=== PATIENT | female | born 1985 | race Caucasian/White ===

== ENCOUNTER → 2016-08-12 | Outpatient (CLI) | payer BC ==
--- NOTE | 2016-08-12 15:33 | DIAGNOSTIC IMAGING REPORT ---
RIGHT ANKLE 3 VIEWS CLINICAL HISTORY: Right ankle injury and pain. FINDINGS: 3 views of the right ankle are obtained. No prior studies are available for comparison at the time of dictation. The skeletal structures are well mineralized. No fracture is seen. The ankle mortise is intact. There is no joint effusion. Mild soft tissue swelling is noted. IMPRESSION: Mild soft tissues with no radiographic evidence of right ankle fracture. Electronically signed by: Isidro Prabhakar M.D. 08/12/2016 3:32 PM Dictated Date/Time: 08/12/2016 3:31 PM
== END | disposition home or self-care (01) ==
LOC: C.RAD1850 15:20
PROVIDERS: ATTEND Internal Medicine
DX: M25.571 Pain in right ankle and joints of right foot (principal)

== ENCOUNTER 2022-01-30 16:23 | Inpatient (IN) ==
[2022-01-30] MEDS ORDERED: SODIUM CHLORIDE 0.9% 1000ML 1,000 ML IV ONE (16:50)
--- NOTE | 2022-01-30 16:53 | Emergency Department Note ---
Impression & Plan Cardiomyopathy, Pleural effusion, Shortness of breath, Chest pain ED Provider Note NAME: ALLEY TORRES AGE: 36 SEX: F : 1985 ARRIVES VIA: Walk-In INFORMANT: Patient ED PROVIDER(S): Lawrence Yao DO CHIEF COMPLAINT: Cough HPI: Patient is a 28-year-old female who with a past medical history asthma, hypothyroidism that presents to the ER for cough which has been present for the past month. Got worse this past Thursday. Patient was seen and evaluated at [facility] and placed on doxycycline and discharged. She notes her symptoms has gotten worse. She is significantly short of breath. She denies any headache or change in vision. She admits to chest pain which has been present for the past 3 days and describes as a tightness. No dysuria, urgency, or frequency. No other exacerbating or remitting factors. She denies any runny nose, sore throat , congestion, or fevers with any of these symptoms. The cough has been nonproductive. ROS: See above HPI for pertinent positives & negatives. A total of 10 systems reviewed and were otherwise negative. PAST MEDICAL HISTORY:See Below PAST SURGICAL HISTORY:See Below FAMILY HISTORY:See Below SOCIAL HISTORY:See Below HOME MEDICATIONS:See Below ALLERGIES:See Below VITALS:See Below PHYSICAL EXAMINATION: GENERAL: Sitting up in bed, alert, ill-appearing, tachypneic, ill-appearing EYE EXAM: normal conjunctiva. PERRL and EOM's grossly intact. OROPHARYNX: mucous membranes are dry NECK: supple, no nuchal rigidity, no adenopathy, non-tender LUNGS: Crackles bilaterally. Normal chest wall mechanics HEART: Tachycardic, S1 normal and S2 normal ABDOMEN: abdomen soft, non-tender, normo-active bowel sounds, no masses, no rebound or guarding. UPPER EXTREMITIES: upper extremities are grossly normal. LOWER EXTREMITIES: No pitting edema. NEURO EXAM: Normal sensorium, cranial nerves II-XII grossly intact, normal speech, no gross weakness of arms, no gross weakness of legs. MEDICAL DECISION MAKING: Patient is a 36-year-old female who presents the ER for significant shortness of breath she has been getting worse over the past week. She has had a cough for over a month. IV was established blood work is obtained. She is found to be tachypneic and tachycardic. Labs show no significant leukocytosis. Hemoglobin with anemia 10.5. BMP was unremarkable. LFTs bilirubin was unremarkable. Troponin was slightly elevated at 23. proBNP was elevated at nearly 400. Lipase was normal. Influenza COVID and RSV was negative. Chest x-ray with cephalization. CT angio of the chest shows no PEs but bilateral pleural effusions and pulmonary edema. She was discussed with Dr. Aamir Layton from cardiology. He notes that if the ase certified technician is still in the house it would be reasonable to obtain an echo at this time but if not it can wait until the morning. Did contact the ase certified technician and she is already home. Discussed with the hospitalist for admission as we do believe that this likely a cardiomyopathy. Cardiology does not believe that this is a acute coronary event as symptoms have been there for several days and troponins only mildly elevated. He did review the EKG as well. Patient was given a dose of Lasix after discussion with cardiology. Patient was on BiPAP to help with the respiratory effort and was admitted to the hospital for further work-up. She was never hypoxic. Triage Nursing notes reviewed. Limited review of prior medical records performed Vital Signs: reviewed and remarkable for tachycardic Differential diagnosis: Differential diagnoses includes but is not limited to pneumonia, bronchitis, COPD/Asthma exacerbation, pneumothorax, pulmonary embolism, congestive heart failure, acute coronary syndrome ER treatment provided: See below Diagnostics interpreted by me: ECG: Sinus tachycardia rate of 132 Left axis Left bundle branch block Cardiac Monitoring: An order was placed for continuous cardiac monitoring. The monitor shows a rate of 132 with sinus rhythm. Laboratory studies: As stated above and show below. Imaging studies: Portable AP upright 1 view of the chest shows cephalization and no pneumothorax CT angio of the chest as described above shows pulmonary edema and pleural effusions Consultation(s): Discussed with Dr. Layton from cardiology as described above Discussed with not any hospitalist as described above Procedures: none Critical Care: I have personally spent 75 minutes of critical care time in the direct management of this patient. This includes bedside care, interpretation of diagnostic studies, and testing, discussion with consultants, patient, and family members, and other required patient management activities. This 75 minutes is in excess of all separately billable procedures. Past Med/Surg History Medical History (Updated 01/30/22 @ 19:12 by Heraclio Hodge MD) Asthma has not had an issue in years- since around 2018- no longer uses inhaler Frequent sinus infections Hypothyroidism Hypothyroidism Seasonal allergies Sinus drainage Surgical History (Updated 10/30/21 @ 15:55 by Octavia Kebede) History of endoscopic sinus surgery 10/17/21 History of intestinal surgery shortly after History of tonsillectomy History of tooth extraction [place] teeth removed Family History Grandmother (Maternal) Diabetes Breast cancer Mother Diabetes Grandfather (Maternal) Emphysema of lung Father Hypertension Dyslipidemia Denies family history of Ovarian cancer Colorectal cancer Social History Smoking Status: Never smoker Second Hand Exposure: No; Hx Alcohol Use: No Hx Substance Use: No Preferred Language: Khmer Communication Ability: Effective Visual Impairment: Limited Home Extension Agent Required: No Beliefs That Will Affect Care: None marital status: Single Current Living Situation: Alone current occupational status: employed current occupation: [employer] Feels Safe at Home: Yes Childhood Exposure to Second-Hand Smoke: No caffeine: Yes Dental Care, Regularly: Yes Physical Activity Frequency: 5-6 Times per Week Seatbelt Use: always Sunscreen Use: Yes Assistive Devices: Glasses Allergies Allergies Allergy/AdvReac Type Severity Reaction Status Date / Time Latex, Natural Rubber Allergy Mild Redness of Verified 01/30/22 17:07 Skin Penicillins Allergy Unknown CAN'T Uncoded 01/30/22 17:07 REMEMBER Home Meds Home Medications Medication Instructions Recorded Confirmed cetirizine 10 mg capsule (Zyrtec) 10 mg PO QAM PRN Allergic Symptoms 08/20/21 01/30/22 L norgest/E estradiol-E estrad 1 tab PO QPM 01/30/22 01/30/22 0.15 mg-30 mcg (84)/10 mcg(7) tabs,3mos (Seasonique) albuterol sulfate 90 mcg/actuation 2 puff inhalation Q8H PRN 01/30/22 01/30/22 aerosol inhaler Shortness Of Breath Or Wheezing doxycycline hyclate 100 mg capsule 100 mg PO BID 01/30/22 01/30/22 promethazine-DM 6.25 mg-15 mg/5 mL 5 ml PO Q8H PRN Cough 01/30/22 01/30/22 oral syrup Previous Rx's Medication Instructions Recorded fluticasone propionate 50 2 spray intranasal DAILY #16 grams 10/14/21 mcg/actuation nasal spray,suspension levothyroxine 150 mcg tablet 150 mcg PO DAILY #30 tabs 12/23/21 Results & Data (ED) Vital Signs Vital Signs - 24 hr 01/30/22 16:27 01/30/22 16:47 01/30/22 16:52 Temperature 36.3 C L Temperature Source Temporal Artery Scan Pulse Rate 135 H 127 H Pulse Rate from SpO2 Sensor 128 H Respiratory Rate 20 30 H Respiratory Effort / Characteristics Non-Labored Respiratory Depth Normal Respiratory Pattern Blood Pressure 139/84 Blood Pressure Mean 102 Pulse Oximetry 96 97 Oxygen Delivery Method Room Air Room Air Room Air Fraction of Inspired Oxygen Sepsis Recent Fever Within 48 Hours No Sepsis New/Unexplained Change in Mental Status No Sepsis Action Taken by Nursing No Action Required 01/30/22 17:00 01/30/22 17:48 01/30/22 17:30 Temperature Temperature Source Pulse Rate 125 H 130 H 129 H Pulse Rate from SpO2 Sensor 126 H 128 H Respiratory Rate 30 H 22 34 H Respiratory Effort / Characteristics Non-Labored Spontaneous Respiratory Depth Normal Respiratory Pattern Regular Blood Pressure 133/97 129/99 Blood Pressure Mean 109 109 Pulse Oximetry 95 95 91 Oxygen Delivery Method Room Air Room Air Fraction of Inspired Oxygen 21 Sepsis Recent Fever Within 48 Hours Sepsis New/Unexplained Change in Mental Status Sepsis Action Taken by Nursing 01/30/22 18:00 01/30/22 18:00 01/30/22 18:33 Temperature Temperature Source Pulse Rate 133 H Pulse Rate from SpO2 Sensor 129 H 128 H Respiratory Rate 25 H Respiratory Effort / Characteristics Respiratory Depth Respiratory Pattern Blood Pressure 119/93 Blood Pressure Mean 101 Pulse Oximetry 95 94 Oxygen Delivery Method BiPAP Fraction of Inspired Oxygen Sepsis Recent Fever Within 48 Hours Sepsis New/Unexplained Change in Mental Status Sepsis Action Taken by Nursing 01/30/22 18:39 01/30/22 18:39 01/30/22 19:00 Temperature Temperature Source Pulse Rate 132 H 126 H Pulse Rate from SpO2 Sensor 134 H Respiratory Rate 24 36 H Respiratory Effort / Characteristics Respiratory Depth Respiratory Pattern Blood Pressure 138/105 H 134/100 Blood Pressure Mean 116 111 Pulse Oximetry 93 98 Oxygen Delivery Method Fraction of Inspired Oxygen Sepsis Recent Fever Within 48 Hours Sepsis New/Unexplained Change in Mental Status Sepsis Action Taken by Nursing Laboratory Data Result diagrams: 01/30/22 16:40 01/30/22 16:40 Lab Results 01/30/22 01/30/22 01/30/22 Range/Units 16:40 16:40 17:05 WBC 10.38 (4.8-10.8) K/ul RBC 4.09 (3.93-5.22) M/uL Hgb 10.5 L (12.0-16.0) g/dl POC Hgb 11.2 L (12.0-16.0) g/dl Hct 33.5 L (34.1-44.9) % POC Hct 33 L (37-47) % MCV 81.9 (80.0-100.0) fL MCH 25.7 (25.0-34.0) pg MCHC 31.3 L (32.0-36.0) g/dL RDW Std Deviation 43.2 (36.4-46.3) fL RDW Coeff of Ayla 14.6 H (11.5-14.5) % Plt Count 576 H (130-400) K/uL MPV 10.0 (9.4-12.3) fL Immature Gran % (Auto) 0.4 % Neut % (Auto) 71.9 % Lymph % (Auto) 19.7 % Greene % (Auto) 6.6 % Eos % (Auto) 0.9 % Baso % (Auto) 0.5 % Neut # (Auto) 7.47 H (1.4-6.5) K/uL Lymph # (Auto) 2.04 (1.2-3.4) K/uL Greene # (Auto) 0.69 (0.24-0.82) K/uL Eos # (Auto) 0.09 (0-0.50) K/uL Baso # (Auto) 0.05 (0-0.2) K/uL Immature Gran # (Auto) 0.04 H (0.00-0.02) K/uL POC pH (7.35-7.45) POC pCO2 (35-46) mmHg POC pO2 (80-95) mmHg POC HCO3 (19-24) maki/L POC Base Excess (-9-1.8) maki/L POC ABG O2 Sat (90-95) % POC Sodium 140 (135-144) mmol/L Sodium 138 (136-145) mmol/L POC Potassium 3.8 (3.3-5.0) mmol/L Potassium 3.7 (3.5-5.1) mmol/L POC Chloride 107 (101-112) mmol/L Chloride 107 (98-107) mmol/L Carbon Dioxide 22 (21-32) mmol/L POC Total CO2 21 L (24-31) mmol/L Anion Gap 9 (3-11) POC Anion Gap 16.0 (16-25) mmol/L POC BUN 11 (7-18) mg/dl BUN 13 (6-23) mg/dl Creatinine 0.77 (0.6-1.2) mg/dl POC Creatinine 0.7 (0.6-1.3) mg/dl Est Cr Clr Drug Dosing 100.5 ml/min Est GFR ( Amer) 113.5 ml/min Est GFR (Non-Af Amer) 97.9 ml/min BUN/Creatinine Ratio 16.9 (10-20) Glucose 108 H (70-99(Fasting)) mg/dl POC Glucose (other) 105 H (70-99) mg/dl Calcium 8.1 L (8.5-10.1) mg/dl POC Ioniz Calcium Linh 1.11 L (1.12-1.32) mmol/l Total Bilirubin 0.9 (0.2-1.0) mg/dl AST 30 (13-39) U/L ALT 44 (7-52) U/L Alkaline Phosphatase 94 (34-104) U/L Troponin I High Sens 23.3 H (0-14) pg/ml B-Natriuretic Peptide (0-100) pg/ml Total Protein 6.7 (6.0-8.3) gm/dl Albumin 3.9 (3.4-5.0) gm/dl Globulin 2.8 (2.5-4.0) gm/dl Albumin/Globulin Ratio 1.4 (0.9-2) Lipase 20 (11-82) U/L SARS-CoV-2 (PCR) (Negative) Influenza Type A (PCR) (Neg) Influenza Type B (PCR) (Neg) RSV (RT-PCR) (Neg) 01/30/22 01/30/22 01/30/22 Range/Units 17:19 17:44 18:13 WBC (4.8-10.8) K/ul RBC (3.93-5.22) M/uL Hgb (12.0-16.0) g/dl POC Hgb 10.5 L (12.0-16.0) g/dl Hct (34.1-44.9) % POC Hct 31 L (37-47) % MCV (80.0-100.0) fL MCH (25.0-34.0) pg MCHC (32.0-36.0) g/dL RDW Std Deviation (36.4-46.3) fL RDW Coeff of Ayla (11.5-14.5) % Plt Count (130-400) K/uL MPV (9.4-12.3) fL Immature Gran % (Auto) % Neut % (Auto) % Lymph % (Auto) % Greene % (Auto) % Eos % (Auto) % Baso % (Auto) % Neut # (Auto) (1.4-6.5) K/uL Lymph # (Auto) (1.2-3.4) K/uL Greene # (Auto) (0.24-0.82) K/uL Eos # (Auto) (0-0.50) K/uL Baso # (Auto) (0-0.2) K/uL Immature Gran # (Auto) (0.00-0.02) K/uL POC pH 7.41 (7.35-7.45) POC pCO2 29 L (35-46) mmHg POC pO2 71 L (80-95) mmHg POC HCO3 19 (19-24) maki/L POC Base Excess -6.0 (-9-1.8) maki/L POC ABG O2 Sat 95.0 (90-95) % POC Sodium 138 (135-144) mmol/L Sodium (136-145) mmol/L POC Potassium 3.9 (3.3-5.0) mmol/L Potassium (3.5-5.1) mmol/L POC Chloride (101-112) mmol/L Chloride (98-107) mmol/L Carbon Dioxide (21-32) mmol/L POC Total CO2 19 L (24-31) mmol/L Anion Gap (3-11) POC Anion Gap (16-25) mmol/L POC BUN (7-18) mg/dl BUN (6-23) mg/dl Creatinine (0.6-1.2) mg/dl POC Creatinine (0.6-1.3) mg/dl Est Cr Clr Drug Dosing ml/min Est GFR ( Amer) ml/min Est GFR (Non-Af Amer) ml/min BUN/Creatinine Ratio (10-20) Glucose (70-99(Fasting)) mg/dl POC Glucose (other) (70-99) mg/dl Calcium (8.5-10.1) mg/dl POC Ioniz Calcium Linh (1.12-1.32) mmol/l Total Bilirubin (0.2-1.0) mg/dl AST (13-39) U/L ALT (7-52) U/L Alkaline Phosphatase (34-104) U/L Troponin I High Sens (0-14) pg/ml B-Natriuretic Peptide 377 H (0-100) pg/ml Total Protein (6.0-8.3) gm/dl Albumin (3.4-5.0) gm/dl Globulin (2.5-4.0) gm/dl Albumin/Globulin Ratio (0.9-2) Lipase (11-82) U/L SARS-CoV-2 (PCR) NEGATIVE (Negative) Influenza Type A (PCR) Negative (Neg) Influenza Type B (PCR) Negative (Neg) RSV (RT-PCR) Negative (Neg) Administered Medications Discontinued Medications Furosemide (Furosemide 40 Mg/4 Ml Vial) 40 mg IV NOW STA Stop: 01/30/22 17:44 Last Admin: 01/30/22 18:04 Dose: 40 mg Documented By: MATT Sodium Chloride (Nss 1000ml) 1,000 mls @ 999 mls/hr IV .Q1H1M ONE Stop: 01/30/22 17:50 Last Infusion: 01/30/22 18:09 Dose: 0 mls/hr Documented By: Admin: 01/30/22 17:00 Dose: 999 mls/hr Documented By: MATT Ioversol (Optiray 320 500ml) 117 ml IV ONCE ONE Stop: 01/30/22 17:22 Last Admin: 01/30/22 17:23 Dose: 117 ml Documented By: JIM Methylprednisolone (Methylprednisolone 125 Mg/2 Ml Vial) 125 mg IV NOW STA Stop: 01/30/22 18:25 Last Admin: 01/30/22 18:54 Dose: 125 mg Documented By: MATT Imaging Data Radiologist's Impression: Chest X-Ray 01/30/22 16:31 XR chest 1V portable HISTORY: Atypical Chest pain, nonspecific COMPARISON: None. FINDINGS: No pneumothorax. No pleural effusions. The heart is mildly enlarged. There are low lung volumes. Mild perihilar interstitial thickening may be technical. No focal lung consolidations to suggest a pneumonia. IMPRESSION: Mild prominence of the cardiac silhouette and interstitial thickening. This could be due technical from the AP portable technique. ACT 112: Negative or not required by law. Electronically signed by: Mohsen Giron M.D. 01/30/2022 4:54 PM Chest CTA 01/30/22 16:50 CT ANGIOGRAPHY OF THE CHEST, PULMONARY EMBOLUS PROTOCOL CLINICAL HISTORY: Chest pain. Cough. Shortness of breath. COMPARISON STUDY: Chest radiograph performed earlier today. TECHNIQUE: Following IV administration of 117 mL of Optiray, helical axial images of the chest were obtained utilizing the pulmonary embolus protocol. Maximal intensity projections and sagittal and coronal reformats were viewed on an independent 3D workstation. IV contrast was administered without complication. Automated exposure control was utilized for the study. A dose lowering technique was utilized adhering to the principles of ALARA. CT DOSE: 595.40 mGy.cm FINDINGS: No pulmonary emboli are identified. Mild cardiomegaly is noted with left ventricular dilatation. There is no pericardial effusion. No thoracic aortic dissection is present. Prominent mediastinal lymph nodes may be related to pulmonary edema. There is no axillary or hilar lymphadenopathy. No pneumothorax is present. Moderate right and small left pleural effusions are present. Interlobular septal thickening is present. Groundglass opacities within the lungs are also present. There is no consolidation to suggest pneumonia. Central airways are patent. Lungs are suboptimally assessed due to respiratory motion. IMPRESSION: 1. No pulmonary emboli identified. 2. Moderate pulmonary edema with moderate right and small left pleural effusions. Mild cardiomegaly with left ventricular dilatation. ACT 112: Negative or not required by law. Electronically signed by: Ant Pickett M.D. 01/30/2022 5:38 PM Discharge Plan Visit Data Chief Complaint: Referred by Doctor Stated Complaint: REFERRED BY DOC,PNEUMONIA, STILL HAS COUGH ED Provider: Lawrence Yao Discharge Problem: Cardiomyopathy, Pleural effusion, Shortness of breath, Chest pain Patient Disposition: Admitted As Inpatient Forms Stand Alone Forms: My [facility] Prescriptions Prescriptions: No Action fluticasone propionate 50 mcg/actuation spray,suspension 2 spray intranasal DAILY Qty: 16 3RF Rx Instructions: administer into each nostril levothyroxine 150 mcg tablet 150 mcg PO DAILY Qty: 30 1RF Zyrtec 10 mg capsule 10 mg PO QAM PRN (Reason: Allergic Symptoms) promethazine-DM 6.25-15 mg/5 mL syrup 5 ml PO Q8H PRN (Reason: Cough) doxycycline hyclate 100 mg capsule 100 mg PO BID Rx Instructions: STARTED 01/24/22 FOR 14 DAYS. albuterol sulfate 90 mcg/actuation HFA aerosol inhaler 2 puff INHALATION Q8H PRN (Reason: Shortness Of Breath Or Wheezing) L norgest/e.estradiol-e.estrad [Seasonique] 0.15 mg-30 mcg (84)/10 mcg (7) tablets,dose pack,3 month 1 tab PO QPM Referrals Referrals: Jin Aguilar MD [Primary Care Provider] -
--- NOTE | 2022-01-30 16:55 | XRay Report ---
XR chest 1V portable HISTORY: Atypical Chest pain, nonspecific COMPARISON: None. FINDINGS: No pneumothorax. No pleural effusions. The heart is mildly enlarged. There are low lung vol umes. Mild perihilar interstitial thickening may be technical. No focal lung consolidations to sugges t a pneumonia. IMPRESSION: Mild prominence of the cardiac silhouette and interstitial thickening. This could be due technical fr om the AP portable technique. ACT 112: Negative or not required by law. Electronically signed by: Mohsen Giron M.D. 01/30/2022 4:54 PM
[2022-01-30 16:58] LABS: Basophils # (auto) 0.05 K/uL (0-0.2); Basophils % (auto) 0.5 %; Eosinophils # (auto) 0.09 K/uL (0-0.50); Eosinophils % (auto) 0.9 %; Hematocrit (blood only) 33.5 % (34.1-44.9); Hemoglobin 10.5 g/dl (12.0-16.0); Immature Granulocytes # (auto) 0.04 K/uL (0.00-0.02); Immature Granulocytes % (auto) 0.4 %; Lymphocytes # (auto) 2.04 K/uL (1.2-3.4); Lymphocytes % (auto) 19.7 %; Mean Corpuscular Hemoglobin 25.7 pg (25.0-34.0); Mean Corpuscular Hgb Conc 31.3 g/dL (32.0-36.0); Mean Corpuscular Volume 81.9 fL (80.0-100.0); Monocytes # (auto) 0.69 K/uL (0.24-0.82); Monocytes % (auto) 6.6 %; Neutrophils # (auto) 7.47 K/uL (1.4-6.5); Neutrophils % (auto) 71.9 %; Platelet Count 576 K/uL (130-400); RDW Coefficient of Variation 14.6 % (11.5-14.5); RDW Standard Deviation 43.2 fL (36.4-46.3); Red Blood Count 4.09 M/uL (3.93-5.22); White Blood Count 10.38 K/ul (4.8-10.8)
[2022-01-30 17:20] LABS: iSTAT Creatinine 0.7 mg/dl (0.6-1.3); iSTAT Hemoglobin 11.2 g/dl (12.0-16.0); iSTAT Ionized Calcium 1.11 mmol/l (1.12-1.32); iSTAT Potassium 3.8 mmol/L (3.3-5.0)
[2022-01-30] MEDS ORDERED: OPTIRAY 320 500ml IV ONE (17:21)
[2022-01-30 17:23] LABS: Troponin I High Sensitivity 23.3 pg/ml (0-14)
[2022-01-30 17:30] LABS: Albumin Globulin Ratio 1.4 (0.9-2); Albumin Level 3.9 gm/dl (3.4-5.0); BUN Creatinine Ratio 16.9 (10-20); Bilirubin,Total 0.9 mg/dl (0.2-1.0); Calcium 8.1 mg/dl (8.5-10.1); Creatinine Clr Calc Pharmacy 100.5 ml/min; Est GFR (African American) 113.5 ml/min; Est GFR (Non-African American) 97.9 ml/min; Globulin 2.8 gm/dl (2.5-4.0); Potassium 3.7 mmol/L (3.5-5.1); Total Protein 6.7 gm/dl (6.0-8.3)
--- NOTE | 2022-01-30 17:40 | CT Scan Report ---
CT ANGIOGRAPHY OF THE CHEST, PULMONARY EMBOLUS PROTOCOL CLINICAL HISTORY: Chest pain. Cough. Shortness of breath. COMPARISON STUDY: Chest radiograph performed earlier today. TECHNIQUE: Following IV administration of 117 mL of Optiray, helical axial images of the chest were o btained utilizing the pulmonary embolus protocol. Maximal intensity projections and sagittal and cor onal reformats were viewed on an independent 3D workstation. IV contrast was administered without co mplication. Automated exposure control was utilized for the study. A dose lowering technique was ut ilized adhering to the principles of ALARA. CT DOSE: 595.40 mGy.cm FINDINGS: No pulmonary emboli are identified. Mild cardiomegaly is noted with left ventricular dilat ation. There is no pericardial effusion. No thoracic aortic dissection is present. Prominent mediasti nal lymph nodes may be related to pulmonary edema. There is no axillary or hilar lymphadenopathy. No pneumothorax is present. Moderate right and small left pleural effusions are present. Interlobular se ptal thickening is present. Groundglass opacities within the lungs are also present. There is no cons olidation to suggest pneumonia. Central airways are patent. Lungs are suboptimally assessed due to re spiratory motion. IMPRESSION: 1. No pulmonary emboli identified. 2. Moderate pulmonary edema with moderate right and small left pleural effusions. Mild cardiomegaly w ith left ventricular dilatation. ACT 112: Negative or not required by law. Electronically signed by: Ant Pickett M.D. 01/30/2022 5:38 PM
[2022-01-30] MEDS ORDERED: FUROSEMIDE 40 MG/4 ML VIAL IV STA (17:43)
[2022-01-30] MEDS ORDERED: methylPREDNISolone 125 MG/2 ML VIAL IV STA (18:24)
[2022-01-30 18:28] LABS: iSTAT Arterial Blood Gas HCO3 19 meg/L (19-24); iSTAT Arterial Blood Gas pCO2 29 mmHg (35-46); iSTAT Arterial Blood Gas pH 7.41 (7.35-7.45); iSTAT Arterial Blood Gas pO2 71 mmHg (80-95); iSTAT Carbon Dioxide 19 mmol/L (24-31); iSTAT Hematocrit 31 % (37-47); iSTAT Hemoglobin 10.5 g/dl (12.0-16.0); iSTAT Potassium 3.9 mmol/L (3.3-5.0); iSTAT Sodium 138 mmol/L (135-144)
[2022-01-30 18:34] LABS: Influenza A virus by PCR Negative (Neg); Influenza B virus by PCR Negative (Neg); RSV by PCR Negative (Neg); SARS CoV2 RNA(COVID-19) Ceph NEGATIVE (Negative)
[2022-01-30] MEDS ORDERED: CETIRIZINE HCL 10 MG TABLET PO PRN (19:00)
[2022-01-30] MEDS ORDERED: ALBUT/IPRATROP 3MG/0.5MG NEB 3 ML VIAL NEB ONE (19:15)
--- NOTE | 2022-01-30 19:41 | History & Physical Report ---
Date of Service January 30, 2022 Assessment & Plan (1) Acute asthma exacerbation: Plan: Typical presentation with acute respiratory alkalosisIV methylprednisolone 125 mg IV given in the ED. 40 mg IV every 8 hours started. No eosinophilia. (Has had recent sinus surgery and has seasonal allergies) PE ruled out by CTA Pleural effusions may be related to a viral pneumonia. TTE ordered by ER physician will probably be done in the morning. Nebulizers DuoNebs. Rule out SARS-CoV-2 though -6 days ago Needs optimization of asthma medications. Have started Advair. Pulmonology consult routine echo ordered in the ED after cardiomegaly seen on CT of the chest. That has ruled out PE. Continue home promethazine dextromethorphan started in [facility] 6 days ago. No indication for antibiotics I have no concern for any cardiac etiology. proBNP in the 300s Troponin mildly elevated- Repeat 4 hours after first sample to ensure stable. Mother of CHF in her 60s and this may be a risk factor potentially if it is ischemic cardiomyopathy. EKG reviewed :Sinus tachycardia normal axis, ST elevation without upcobing in leads V1 to 3 with poor R wave progressionwill need repeat EKG once tachycardia improves. (2) Hypothyroidism: Plan: Check TSH and keep home dose levothyroxine (3) Menorrhagia with regular cycle: Plan: Normocytic anemia mild hemoglobin 10. This is a 3 g drop in 6 months Repeat in a.m. (4) Obesity (BMI 30.0-34.9): Plan: Needs to see a PCP regularly for health maintenance (5) Seasonal allergies: Plan: Continue home antihistamine Zyrtec Plan Treat for asthma exacerbation with pulmonology consult DVT prophylaxis with Lovenox Admitted to PCU. Discussed plan with patient and her sister as well as [id number] who were in the room, their questions answered History of Present Illness Chief Complaint: Cough and shortness of breath for 3 weeks, worsening last 4 to 5 days Primary Care Provider: Jin Aguilar MD 36 F employed in the [employer] with past medical history of asthma (not on any medications and not seeing any primary care physician), recent right ethmoid sinus surgery for silent sinus syndrome 10/17/2021, presents with a 3-week history of cough with clear sputum and a 1 week history of increasing shortness of breath. Cough with clear sputum for which she saw [facility] 6 days ago was prescribed doxycycline for 14 days. She was told she has pneumonia after chest x-ray. She noticed no improvement and for the last few days has been sitting up in bed to breathe. Occasionally hears herself wheezing. Presented to the ED with her [id number] today with a heart rate in the 130s and respiratory rate initially at 40/min. Initial ER diagnosis of CHF was made from some cardiomegaly seen on the CTA which had ruled out a pulmonary embolus and pneumonia. Also has moderate pleural effusions. No fever. Fully COVID vaccinated and booster dose October. Negative Sars- COV2 PCR 6 days ago in [facility]. Got 40 mg IV Lasix by the time I evaluated in the ER where she was on BiPAP 01/23 9on room air) saturating 95%. On walking to the bathroom and back off BiPAP was in no significant respiratory distress and sats remained 96 to 98% on room air with significant tachycardia sinus. ABGs RA revealed respiratory alkalosis 7.408/29.3/71/95% ROS : No palpitations/fever/chills chest pain with persistent cough, orthopnea as mentioned above for the last few days sitting up to breathe at night, no significant weight gain. No leg swelling. No known heart condition or diagnosis Menorrhagia for as long as she is had periods and uses oral contraceptive pills to control it. No skin changesurinary symptoms/nausea/vomiting No syncope or dizziness. No confusion noted (corroborated by [id number] in the room), does not report any skin rash 2 loose bowel movements per day for the last 3 to 4 days, Denies depressed mood No dyspnea on exertion at baseline and walks to the bus from her workplace in [facility] because she does not like driving. Allergies Allergy/AdvReac Type Severity Reaction Status Date / Time Latex, Natural Rubber Allergy Mild Redness of Verified 01/30/22 17:07 Skin Penicillins Allergy Unknown CAN'T Uncoded 01/30/22 17:07 REMEMBER Home Medications Medication Instructions Recorded Confirmed Type cetirizine 10 mg capsule (Zyrtec) 10 mg PO QAM PRN Allergic Symptoms 08/20/21 01/30/22 History fluticasone propionate 50 2 spray intranasal DAILY #16 grams 10/14/21 01/30/22 Rx mcg/actuation nasal spray,suspension levothyroxine 150 mcg tablet 150 mcg PO DAILY #30 tabs 12/23/21 01/30/22 Rx L norgest/E estradiol-E estrad 1 tab PO QPM 01/30/22 01/30/22 History 0.15 mg-30 mcg (84)/10 mcg(7) tabs,3mos (Seasonique) albuterol sulfate 90 mcg/actuation 2 puff inhalation Q8H PRN 01/30/22 01/30/22 History aerosol inhaler Shortness Of Breath Or Wheezing doxycycline hyclate 100 mg capsule 100 mg PO BID 01/30/22 01/30/22 History promethazine-DM 6.25 mg-15 mg/5 mL 5 ml PO Q8H PRN Cough 01/30/22 01/30/22 History oral syrup Past Med/Surg History Medical History (Updated 01/30/22 @ 19:12 by Heraclio Hodge MD) Asthma has not had an issue in years- since around 2017- no longer uses inhaler Frequent sinus infections Hypothyroidism Hypothyroidism Seasonal allergies Sinus drainage Surgical History (Updated 10/30/21 @ 15:55 by Octavia Kebede) History of endoscopic sinus surgery 10/17/21 History of intestinal surgery shortly after History of tonsillectomy History of tooth extraction Mora teeth removed Family History Grandmother (Maternal) Diabetes Breast cancer Mother Diabetes Grandfather (Maternal) Emphysema of lung Father Hypertension Dyslipidemia Denies family history of Ovarian cancer Colorectal cancer Social History Smoking Status: Never smoker Second Hand Exposure: No; Hx Alcohol Use: No Hx Substance Use: No Preferred Language: Cypriot Communication Ability: Effective Visual Impairment: Limited Registered Diet Technician Required: No Beliefs That Will Affect Care: None marital status: Single Current Living Situation: Alone current occupational status: employed current occupation: [employer] Feels Safe at Home: Yes Childhood Exposure to Second-Hand Smoke: No caffeine: Yes Dental Care, Regularly: Yes Physical Activity Frequency: 5-6 Times per Week Seatbelt Use: always Sunscreen Use: Yes Assistive Devices: Glasses Immunizations: COVID-19 fully vaccinated with booster October 2021, flu shot this year Physical Exam Physical Exam: Pleasant obese lady, able to give a lucid history, no acute distress even off BiPAP Heart rate 132, respiratory rate 30/min, temperature 36.3, sats 98% on room air with and without BiPAP 128 Chest very diminished entry breath sounds bilaterally, no wheezes CVS S1-S2 tachycardia Abdomen obese nontender Extremities trace edema [employer] grossly intact, walked to the bathroom unassisted Affectslightly tearful describing her mother's at age 62 from CHF 7 years ago, rest of the time was cheerful, good insight and judgment Results & Data Results & Data ([facility]) Vital Signs (Past 12 Hours) Vital Signs Temp Pulse Resp BP Pulse Ox O2 Del Method FiO2 01/30/22 19:00 126 H 36 H 134/100 98 01/30/22 18:39 138/105 H 01/30/22 18:39 132 H 24 93 01/30/22 18:33 94 01/30/22 18:00 133 H 25 H 95 BiPAP 01/30/22 18:00 119/93 01/30/22 17:30 129 H 34 H 129/99 91 Room Air 01/30/22 17:48 130 H 22 95 21 01/30/22 17:00 125 H 30 H 133/97 95 Room Air 01/30/22 16:52 127 H 30 H 97 Room Air 01/30/22 16:47 Room Air 01/30/22 16:27 36.3 C L 135 H 20 139/84 96 Room Air Laboratory Results 01/30/22 01/30/22 01/30/22 18:13 17:44 17:19 WBC RBC Hgb POC Hgb 10.5 L Hct POC Hct 31 L MCV MCH MCHC RDW Std Deviation RDW Coeff of Ayla Plt Count MPV Immature Gran % (Auto) Neut % (Auto) Lymph % (Auto) Placer % (Auto) Eos % (Auto) Baso % (Auto) Neut # (Auto) Lymph # (Auto) Placer # (Auto) Eos # (Auto) Baso # (Auto) Immature Gran # (Auto) POC pH 7.41 POC pCO2 29 L POC pO2 71 L POC HCO3 19 POC Base Excess -6.0 POC ABG O2 Sat 95.0 POC Sodium 138 Sodium POC Potassium 3.9 Potassium POC Chloride Chloride Carbon Dioxide POC Total CO2 19 L Anion Gap POC Anion Gap POC BUN BUN Creatinine POC Creatinine Est Cr Clr Drug Dosing Est GFR ( Amer) Est GFR (Non-Af Amer) BUN/Creatinine Ratio Glucose POC Glucose (other) Calcium POC Ioniz Calcium Linh Total Bilirubin AST ALT Alkaline Phosphatase Troponin I High Sens B-Natriuretic Peptide 377 H Total Protein Albumin Globulin Albumin/Globulin Ratio Lipase SARS-CoV-2 (PCR) NEGATIVE Influenza Type A (PCR) Negative Influenza Type B (PCR) Negative RSV (RT-PCR) Negative 01/30/22 01/30/22 01/30/22 17:05 16:40 16:40 WBC 10.38 RBC 4.09 Hgb 10.5 L POC Hgb 11.2 L Hct 33.5 L POC Hct 33 L MCV 81.9 MCH 25.7 MCHC 31.3 L RDW Std Deviation 43.2 RDW Coeff of Ayla 14.6 H Plt Count 576 H MPV 10.0 Immature Gran % (Auto) 0.4 Neut % (Auto) 71.9 Lymph % (Auto) 19.7 Placer % (Auto) 6.6 Eos % (Auto) 0.9 Baso % (Auto) 0.5 Neut # (Auto) 7.47 H Lymph # (Auto) 2.04 Placer # (Auto) 0.69 Eos # (Auto) 0.09 Baso # (Auto) 0.05 Immature Gran # (Auto) 0.04 H POC pH POC pCO2 POC pO2 POC HCO3 POC Base Excess POC ABG O2 Sat POC Sodium 140 Sodium 138 POC Potassium 3.8 Potassium 3.7 POC Chloride 107 Chloride 107 Carbon Dioxide 22 POC Total CO2 21 L Anion Gap 9 POC Anion Gap 16.0 POC BUN 11 BUN 13 Creatinine 0.77 POC Creatinine 0.7 Est Cr Clr Drug Dosing 100.5 Est GFR ( Amer) 113.5 Est GFR (Non-Af Amer) 97.9 BUN/Creatinine Ratio 16.9 Glucose 108 H POC Glucose (other) 105 H Calcium 8.1 L POC Ioniz Calcium Linh 1.11 L Total Bilirubin 0.9 AST 30 ALT 44 Alkaline Phosphatase 94 Troponin I High Sens 23.3 H B-Natriuretic Peptide Total Protein 6.7 Albumin 3.9 Globulin 2.8 Albumin/Globulin Ratio 1.4 Lipase 20 SARS-CoV-2 (PCR) Influenza Type A (PCR) Influenza Type B (PCR) RSV (RT-PCR) Diagnostic Findings Home Medications Medication Instructions Recorded Confirmed Last Taken cetirizine 10 mg capsule (Zyrtec) 10 mg PO QAM PRN Allergic Symptoms 08/20/21 01/30/22 10/16/21 fluticasone propionate 50 2 spray intranasal DAILY #16 grams 10/14/21 01/30/22 01/30/22 mcg/actuation nasal spray,suspension levothyroxine 150 mcg tablet 150 mcg PO DAILY #30 tabs 12/23/21 01/30/22 01/30/22 L norgest/E estradiol-E estrad 1 tab PO QPM 01/30/22 01/30/22 01/29/22 0.15 mg-30 mcg (84)/10 mcg(7) tabs,3mos (Seasonique) albuterol sulfate 90 mcg/actuation 2 puff inhalation Q8H PRN 01/30/22 01/30/22 Unknown aerosol inhaler Shortness Of Breath Or Wheezing doxycycline hyclate 100 mg capsule 100 mg PO BID 01/30/22 01/30/22 01/30/22 08:00 promethazine-DM 6.25 mg-15 mg/5 mL 5 ml PO Q8H PRN Cough 01/30/22 01/30/22 Unknown oral syrup Medications Administered Home Medications Medication Instructions Recorded Confirmed Last Taken cetirizine 10 mg capsule (Zyrtec) 10 mg PO QAM PRN Allergic Symptoms 08/20/21 01/30/22 10/16/21 fluticasone propionate 50 2 spray intranasal DAILY #16 grams 10/14/21 01/30/22 01/30/22 mcg/actuation nasal spray,suspension levothyroxine 150 mcg tablet 150 mcg PO DAILY #30 tabs 12/23/21 01/30/22 01/30/22 L norgest/E estradiol-E estrad 1 tab PO QPM 01/30/22 01/30/22 01/29/22 0.15 mg-30 mcg (84)/10 mcg(7) tabs,3mos (Seasonique) albuterol sulfate 90 mcg/actuation 2 puff inhalation Q8H PRN 01/30/22 01/30/22 Unknown aerosol inhaler Shortness Of Breath Or Wheezing doxycycline hyclate 100 mg capsule 100 mg PO BID 01/30/22 01/30/22 01/30/22 08:00 promethazine-DM 6.25 mg-15 mg/5 mL 5 ml PO Q8H PRN Cough 01/30/22 01/30/22 Unknown oral syrup Code Status & VTE Plan Code Status Full code and discussed with patient in ED room VTE Prophylaxis Plan VTE Prophylaxis will be ordered: Yes PG Care Time/CCT Total # of Minutes Spent Total Time Spent with Patient: Total time spent is greater than 50% in coordination of care (as documented) at patient's floor/unit and/or counseling patient: Coding Level of Care Code 32190 Initial Inpt Care Lvl 3 Diagnoses Acute asthma exacerbation J45.901 Hypothyroidism E03.9 Menorrhagia with regular cycle N92.0 Obesity (BMI 30.0-34.9) E66.9 Seasonal allergies J30.2 Time Spent (min) 50
[2022-01-30] MEDS ORDERED: ENOXAPARIN INJ 40 MG/0.4 ML SYR SQ ONE (21:15)
[2022-01-30] MEDS ORDERED: FAMOTIDINE 20 MG TAB PO ONE (21:20)
[2022-01-30] MEDS: FAMOTIDINE 20 MG TAB PO SCH (22:05)
[2022-01-30] MEDS ORDERED: methylPREDNISolone 40 MG in SYRINGE 0 ML IV SCH (23:00)
[2022-01-30] MEDS ORDERED: ALBUT/IPRATROP 3MG/0.5MG NEB 3 ML VIAL NEB PRN (23:00)
[2022-01-31] MEDS ORDERED: methylPREDNISolone 40 MG in SYRINGE 0 ML IV SCH (04:00)
[2022-01-31] MEDS ORDERED: LEVOTHYROXINE SODIUM 150 MCG TABLET PO SCH (06:30)
[2022-01-31] MEDS: FLUTICASONE/VILANTEROL 100/25MCG 14 PUFFS/INHALER INH SCH (08:13)
[2022-01-31] MEDS: FAMOTIDINE 20 MG TAB PO SCH ×2 (08:14→20:53)
[2022-01-31] MEDS: FLUTICASONE PROPIONATE NA SPR 16 GM BTL SCH (08:14)
[2022-01-31] MEDS: guaiFENesin/DEXTROM SYRUP 100MG/10MG 5ML UDC PO PRN (08:14)
--- NOTE | 2022-01-31 08:40 | Pulmonary Consultation ---
Date of Consultation January 31, 2022 Assessment & Plan (1) Pleural effusion: (2) Pulmonary edema: (3) Asthma: (4) Hypoxemia: Plan Impression: 36-year-old female with remote history of asthma not on any medications and without recent PFTs admitted with hypoxemic respiratory failure, pulmonary edema, and bilateral pleural effusions. She is improved at this morning with diuretics BiPAP steroids and bronchodilators. Recommendations: 1. Acute hypoxemic respiratory failure: Would be distinctly unusual for asthma to cause diffuse pulmonary infiltrates consistent with pulmonary edema as well as bilateral pleural effusions so I think there may be a secondary etiology going on. Wean oxygen at this point time. Her blood gas appears to show a decrease in the PCO2 likely compensating for metabolic issue as the patient's pH is normal. She did not have a significant anion gap. Lactate was not checked. At this point time she is better so I do not think we need to proceed with additional evaluation. Would wean oxygen as tolerated. 2. Asthma: The patient does not appear bronchospastic currently. Wheezing could be a result of bronchial wall edema. Nevertheless I cannot rule out that she may have had an asthmatic component. We will continue Breo. Decrease prednisone to 20 mg a day for 3 days then discontinue. 3. Pulmonary edema with bilateral pleural effusions: Echocardiogram pending. Continue diuresis. No indication for thoracentesis. 4. Once the patient stabilized and off oxygen, she can likely be dismissed from the hospital. She should have pulmonary follow-up with repeat PFTs. Allergy evaluation may be appropriate as well. Above recommendations and plan were discussed with the patient. Questions were answered to best my ability. She expressed understanding and is in agreement with plan. Will reassess tomorrow. Feel free to contact us with questions or concerns History of Present Illness Attending Physician: Heraclio Hodge MD History of Present Illness Asked by hospitalist to evaluate this patient admitted with hypoxemic respiratory failure. History is obtained from discussion with the patient and reviewed electronic medical record. The patient is a 36-year-old female who relates a history of childhood asthma. She was admitted as a child and put in an oxygen tent. She had allergy testing performed as an adolescent and was on allergy shots for a period of time but then appeared to outgrow her asthma. She has an inhaler that she uses on an intermittent basis but this is usually only during episodes of upper respiratory illness. 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 The patient states that over the last month she developed a cough. She initi ally attributed this to sinus issues that she had significant postnasal drip. Her symptoms persisted and eventually she was seen at an urgent care clinic. She was prescribed doxycycline which she took but it had no effect on her symptoms. She states she developed paroxysmal nocturnal dyspnea and was unable to lie down. The coughing and shortness of breath became too bad. She is unclear whether this got better with assuming an upright position but due to the persistent of her symptoms she was seen at the urgent care. They performed a repeat chest x-ray which we do not have available to review which showed no acute change and the patient was referred to the emergency room. She was found to be hypoxemic tachycardic and tachypneic in the emergency room. She had a CTA which showed no PE but did show pulmonary edema with bilateral pleural effusions. She was given Lasix and placed on BiPAP. This improved her symptoms and in short order she was able to be weaned off of the BiPAP. She was admitted by the hospitalist with a diagnosis of acute asthma exacerbation after having received Solu-Medrol. Echo was ordered. Troponin and BNP were mildly increased. The patient denies palpitations or chest pressure. She has not noted any significant lower extremity edema. She does have a family history of congestive heart failure. Allergies Allergy/AdvReac Type Severity Reaction Status Date / Time Latex, Natural Rubber Allergy Mild Redness of Verified 01/30/22 17:07 Skin Penicillins Allergy Unknown can't Verified 01/30/22 21:04 remember Home Medications Medication Instructions Recorded Confirmed Type cetirizine 10 mg capsule (Zyrtec) 10 mg PO QAM PRN Allergic Symptoms 08/20/21 01/30/22 History fluticasone propionate 50 2 spray intranasal DAILY #16 grams 10/14/21 01/30/22 Rx mcg/actuation nasal spray,suspension levothyroxine 150 mcg tablet 150 mcg PO DAILY #30 tabs 12/23/21 01/30/22 Rx L norgest/E estradiol-E estrad 1 tab PO QPM 01/30/22 01/30/22 History 0.15 mg-30 mcg (84)/10 mcg(7) tabs,3mos (Seasonique) albuterol sulfate 90 mcg/actuation 2 puff inhalation Q8H PRN 01/30/22 01/30/22 History aerosol inhaler Shortness Of Breath Or Wheezing doxycycline hyclate 100 mg capsule 100 mg PO BID 01/30/22 01/30/22 History promethazine-DM 6.25 mg-15 mg/5 mL 5 ml PO Q8H PRN Cough 01/30/22 01/30/22 History oral syrup Patient History Medical History (Updated 01/31/22 @ 08:34 by Mart Reyna MD) Asthma has not had an issue in years- since around 2018- no longer uses inhaler Frequent sinus infections Hypothyroidism Hypothyroidism Seasonal allergies Sinus drainage Surgical History (Updated 10/30/21 @ 15:55 by Octavia Kebede) History of endoscopic sinus surgery 10/17/21 History of intestinal surgery shortly after History of tonsillectomy History of tooth extraction [place] teeth removed Family History Grandmother (Maternal) Diabetes Breast cancer Mother Diabetes Grandfather (Maternal) Emphysema of lung Father Hypertension Dyslipidemia Denies family history of Ovarian cancer Colorectal cancer Social History Smoking Status: Never smoker Second Hand Exposure: No; Hx Alcohol Use: Yes Hx Substance Use: No Preferred Language: Estonian Communication Ability: Effective Visual Impairment: Limited Wrapper Sizer Required: No Beliefs That Will Affect Care: None marital status: Single Current Living Situation: Alone current occupational status: employed current occupation: [employer] Other Information That Helps Us Care for You: No Feels Safe at Home: Yes Safety Concerns: Feels Safe At This Time Childhood Exposure to Second-Hand Smoke: No caffeine: Yes Dental Care, Regularly: Yes Physical Activity Frequency: 5-6 Times per Week Seatbelt Use: always Sunscreen Use: Yes Assistive Devices: Glasses Review of Systems Review of Systems: All systems reviewed & are unremarkable except as noted in Subjective Physical Exam Constitutional: WD/WN, vitals as above Neck: trachea midline, no thyromegaly Respiratory: normal respiratory effort and + cough; no respiratory distress, no labored breathing and not tachypneic Auscultation: + crackles; no wheezes Cardiovascular: RRR, no murmur, no edema Gastrointestinal (Abdomen): normal bowel sounds, soft, nontender, no hepatosplenomegaly Musculoskeletal: Extremities: extremities normal to inspection Skin: no rashes, warm and dry Neurologic: Nonfocal exam Lymphatic: no cervical lymphadenopathy Results & Data Results & Data ([facility]) Vital Signs (Past 12 Hours) Vital Signs Temp Pulse Pulse Resp BP Pulse Ox O2 Del Method 01/31/22 07:46 36.3 C L 114 H 20 121/80 94 Room Air, Nasal Cannula 01/31/22 07:00 98 H 01/31/22 06:19 70 25 H 96 01/31/22 04:23 36.6 C 108 H 18 139/81 94 Room Air 01/31/22 02:45 126 H 20 21 L BiPAP 01/31/22 00:26 126 H 01/30/22 21:00 122 H 01/30/22 22:09 Nasal Cannula 01/30/22 22:09 36.5 C 122 H 18 123/77 96 Nasal Cannula O2 Flow Rate FiO2 01/31/22 07:46 2 01/31/22 07:00 01/31/22 06:19 21 01/31/22 04:23 01/31/22 02:45 01/31/22 00:26 01/30/22 21:00 01/30/22 22:09 2 01/30/22 22:09 2 Critical Care Results & Data Vital Signs (Past 12 Hours) Vital Signs Temp Pulse Pulse Resp BP Pulse Ox O2 Del Method 01/31/22 07:46 36.3 C L 114 H 20 121/80 94 Room Air, Nasal Cannula 01/31/22 07:00 98 H 01/31/22 06:19 70 25 H 96 01/31/22 04:23 36.6 C 108 H 18 139/81 94 Room Air 01/31/22 02:45 126 H 20 21 L BiPAP 01/31/22 00:26 126 H 01/30/22 21:00 122 H 01/30/22 22:09 Nasal Cannula 01/30/22 22:09 36.5 C 122 H 18 123/77 96 Nasal Cannula O2 Flow Rate FiO2 01/31/22 07:46 2 01/31/22 07:00 01/31/22 06:19 21 01/31/22 04:23 01/31/22 02:45 01/31/22 00:26 01/30/22 21:00 01/30/22 22:09 2 01/30/22 22:09 2 Lab & Micro Results (Past 24 Hours) RBC 4.09 M/uL (3.93-5.22) 01/30/22 WBC 10.38 K/ul (4.8-10.8) 01/30/22 Hgb 10.5 g/dl (12.0-16.0) L 01/30/22 Hct 33.5 % (34.1-44.9) L 01/30/22 MCV 81.9 fL (80.0-100.0) 01/30/22 MCH 25.7 pg (25.0-34.0) 01/30/22 MCHC 31.3 g/dL (32.0-36.0) L 01/30/22 RDW Standard Deviation 43.2 fL (36.4-46.3) 01/30/22 RDW Coefficient of Variation 14.6 % (11.5-14.5) H 01/30/22 Plt Count 576 K/uL (130-400) H 01/30/22 MPV 10.0 fL (9.4-12.3) 01/30/22 Neutrophils (%) (Auto) 71.9 % 01/30/22 Lymphocytes (%) (Auto) 19.7 % 01/30/22 Monocytes # (Auto) 0.69 K/uL (0.24-0.82) 01/30/22 Eosinophils # (Auto) 0.09 K/uL (0-0.50) 01/30/22 Immature Granulocyte % (Auto) 0.4 % 01/30/22 Neutrophils # (Auto) 7.47 K/uL (1.4-6.5) H 01/30/22 Lymphocytes # (Auto) 2.04 K/uL (1.2-3.4) 01/30/22 Monocytes # (Auto) 0.69 K/uL (0.24-0.82) 01/30/22 Eosinophils # (Auto) 0.09 K/uL (0-0.50) 01/30/22 Basophils # (Auto) 0.05 K/uL (0-0.2) 01/30/22 Immature Granulocyte # (Auto) 0.04 K/uL (0.00-0.02) H 01/30 Na 138 mmol/L (136-145) 01/30/22 K 3.7 mmol/L (3.5-5.1) 01/30/22 Cl 107 mmol/L (98-107) 01/30/22 CO2 22 mmol/L (21-32) 01/30/22 Anion Gap 9 (3-11) 01/30/22 BUN 13 mg/dl (6-23) 01/30/22 Creatinine 0.77 mg/dl (0.6-1.2) 01/30/22 Estimated GFR ( Amer) 113.5 ml/min 01/30/22 Estimated GFR (Non-Af Amer) 97.9 ml/min 01/30/22 BUN/Creatinine Ratio 16.9 (10-20) 01/30/22 Glu 108 mg/dl (70-99(Fasting)) H 01/30/22 Ca 8.1 mg/dl (8.5-10.1) L 01/30/22 Total Bilirubin 0.9 mg/dl (0.2-1.0) 01/30/22 AST 30 U/L (13-39) 01/30/22 ALT 44 U/L (7-52) 01/30/22 Alkaline Phosphatase 94 U/L (34-104) 01/30/22 TP 6.7 gm/dl (6.0-8.3) 01/30/22 Albumin 3.9 gm/dl (3.4-5.0) 01/30/22 Globulin 2.8 gm/dl (2.5-4.0) 01/30/22 Albumin/Globulin Ratio 1.4 (0.9-2) 01/30/22 Mg Pending 01/31/22 07:12 Calcium Level 8.1 mg/dl (8.5-10.1) L 01/30/22 16:40 Diagnostic Findings (Past 24 Hours) Chest X-Ray 01/30/22 16:31 XR chest 1V portable HISTORY: Atypical Chest pain, nonspecific COMPARISON: None. FINDINGS: No pneumothorax. No pleural effusions. The heart is mildly enlarged. There are low lung volumes. Mild perihilar interstitial thickening may be technical. No focal lung consolidations to suggest a pneumonia. IMPRESSION: Mild prominence of the cardiac silhouette and interstitial thickening. This could be due technical from the AP portable technique. ACT 112: Negative or not required by law. Electronically signed by: Mohsen Giron M.D. 01/30/2022 4:54 PM Chest CTA 01/30/22 16:50 CT ANGIOGRAPHY OF THE CHEST, PULMONARY EMBOLUS PROTOCOL CLINICAL HISTORY: Chest pain. Cough. Shortness of breath. COMPARISON STUDY: Chest radiograph performed earlier today. TECHNIQUE: Following IV administration of 117 mL of Optiray, helical axial images of the chest were obtained utilizing the pulmonary embolus protocol. Maximal intensity projections and sagittal and coronal reformats were viewed on an independent 3D workstation. IV contrast was administered without complication. Automated exposure control was utilized for the study. A dose lowering technique was utilized adhering to the principles of ALARA. CT DOSE: 595.40 mGy.cm FINDINGS: No pulmonary emboli are identified. Mild cardiomegaly is noted with left ventricular dilatation. There is no pericardial effusion. No thoracic aortic dissection is present. Prominent mediastinal lymph nodes may be related to pulmonary edema. There is no axillary or hilar lymphadenopathy. No pneumothorax is present. Moderate right and small left pleural effusions are present. Interlobular septal thickening is present. Groundglass opacities within the lungs are also present. There is no consolidation to suggest pneumonia. Central airways are patent. Lungs are suboptimally assessed due to respiratory motion. IMPRESSION: 1. No pulmonary emboli identified. 2. Moderate pulmonary edema with moderate right and small left pleural effusions. Mild cardiomegaly with left ventricular dilatation. ACT 112: Negative or not required by law. Electronically signed by: Ant Pickett M.D. 01/30/2022 5:38 PM I & O Totals 24 Hours 01/30/22 01/31/22 02/01/22 06:59 06:59 06:59 Intake Total 1000 / 1000 Balance 1000 / 1000 Cumulative 01/30/22 16:23 thru 01/31/22 06:02 Intake Total 1000 Balance 1000 RT Ventilator Mngmt (Last Documented) Ventilator Ordered Settings Respiratory Rate 20 01/31/22 07:46 Fraction of Inspired Oxygen 21 01/31/22 06:19 Ventilator - PT Measurements Respiratory Rate 20 PG Care Time/CCT Total # of Minutes Spent Total Time Spent with Patient: Total time spent is greater than 50% in coordination of care (as documented) at patient's floor/unit and/or counseling patient: Coding Level of Care Code 76825 Inpt Consult Level 4 Diagnoses Pleural effusion J90 Pulmonary edema J81.1 Asthma J45.909 Hypoxemia R09.02
--- NOTE | 2022-01-31 08:46 | XCELERA ---
[id number]
[2022-01-31 08:49] LABS: Creatinine Clr Calc Pharmacy 124.4 ml/min; Est GFR (African American) 132.6 ml/min; Est GFR (Non-African American) 114.4 ml/min; Magnesium 1.9 mg/dl (1.7-2.4); Potassium 3.7 mmol/L (3.5-5.1)
[2022-01-31] MEDS ORDERED: FUROSEMIDE INJ 20 MG/2 ML VIAL IV SCH (09:00)
--- NOTE | 2022-01-31 09:31 | Electrocardiogram Report ---
Test Reason : Blood Pressure : / mmHG Vent. Rate : 132 BPM Atrial Rate : 132 BPM P-R Int : 130 ms QRS Dur : 112 ms QT Int : 326 ms P-R-T Axes : 046 -23 112 degrees QTc Int : 483 ms Sinus tachycardia Incomplete left bundle block Abnormal ECG No previous ECGs available Confirmed by Tim Devries ([id number]) on 01/31/2022 9:31:33 AM Referred By: REFERRED SELF Confirmed By:Tim Devries
[2022-01-31] MEDS: predniSONE 20 MG TAB PO SCH (10:15)
--- NOTE | 2022-01-31 11:20 | Electrocardiogram Report ---
Test Reason : Blood Pressure : / mmHG Vent. Rate : 123 BPM Atrial Rate : 123 BPM P-R Int : 122 ms QRS Dur : 122 ms QT Int : 364 ms P-R-T Axes : 070 030 083 degrees QTc Int : 521 ms Sinus tachycardia Non-specific intra-ventricular conduction delay Cannot rule out Anterior infarct , age undetermined Abnormal ECG When compared with ECG of 30-JAN-2022 16:35, Incomplete left bundle block no longer present Confirmed by Tim Devries ([id number]) on 01/31/2022 11:20:21 AM Referred By: REFERRED SELF Confirmed By:Tim Devries
[2022-01-31] MEDS ORDERED: FUROSEMIDE INJ 20 MG/2 ML VIAL IV ONE (11:30)
--- NOTE | 2022-01-31 12:03 | Cardiology Consultation ---
Date of Consultation January 31, 2022 Assessment & Plan (1) Cardiomyopathy: Severely reduced ejection fraction. Unknown etiology of cardiomyopathy. Most likely include ischemic (recent LAD territory infarction?), Viral, or thyroid disease. She will need definitive evaluation by coronary angiography and r evascularization if indicated. She shall be initiated on guideline directed medical therapy for chronic systolic heart failure including; heart failure indicated beta-elvia, Entresto/MARCELLE inhibitor/ARB, and loop diuretic as needed to maintain euvolemia. Adjuvant regimen to include SGLT2 inhibitor, spironolactone. These will be added as tolerated. Finally, a Life-vest should be considered prior to discharge. (2) Mitral regurgitation, acute: Suspect this is secondary to cardiomyopathy as she did not have prior history of heart murmur. However, it certainly possible that the cardiomyopathy is secondary to longstanding severe mitral regurgitation. This will need to be followed long-term as an outpatient. (3) Acute systolic (congestive) heart failure: She has significant left-sided heart failure at this time with minimal right- sided findings. We will diurese her as aggressively as she can tolerate. Once she is able to lie flat she will undergo catheterization. Supplement potassium as needed to maintain within normal limits. Plan Additional recommendations pending results of catheterization. History of Present Illness Reason for Consultation: New cardiomyopathy Attending Physician: Heraclio Hodge MD History of Present Illness Pleasant 36-year-old female without prior history of cardiac disease presented with shortness of breath and hypoxia. She has a longstanding history of "silent sinus" syndrome and has had multiple recurrent sinus infections with significant drainage. She also has a history of asthma. Recently treated for presumed asthma exacerbation. However, she did not respond to treatment as she typically does. She underwent echocardiogram on this admission demonstrating significant reduction in her LVEF with significant mitral regurgitation and wall motion abnormalities concerning for LAD territory ischemia/infarction. Her EKG was also concerning for LAD territory infarction of unknown chronicity. CT scan of the chest was performed to exclude pulmonary embolism. There was no evidence of pulmonary embolism but there was evidence of bilateral pleural effusions and interstitial edema with mild cardiomegaly. Her troponin is also found to be very modestly elevated. Because of her presentation and these findings I have been asked to see her. Patient denies any anginal chest pain. She has noted significant cough and shortness of breath for the last several weeks which she attributed to asthma exacerbation. For the past several days her cough and shortness of breath have worsened and she has had to sit up in bed to sleep. She does not recall any episodes of sudden onset chest pain. 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 She states she had onset of chest pressure and shortness of breath with cough. She attributed this to the john environment triggering asthma. She has continued with those symptoms since that time and just over the past few days had severe symptoms. She also recalls that she was concerned she had COVID and checked 2 home COVID tests which were negative. She denies any syncope, near syncope, PND, racing heartbeat, palpitations, but has had some mild intermittent lower extremity edema. She did receive IV Lasix when admitted and notes that her shortness of breath has modestly improved. She still does not feel like she could not lay flat without shortness of breath. I have reviewed her echo results with her and recommended that definitive evaluation for coronary disease should be undertaken by coronary angiography. She is willing to undergo cardiac catheterization but is concerned about time off from work as treatment for "pneumonia" has used up her PTO. She voices no other complaints or concerns at this time. Allergies Allergy/AdvReac Type Severity Reaction Status Date / Time Latex, Natural Rubber Allergy Mild Redness of Verified 01/30/22 17:07 Skin Penicillins Allergy Unknown can't Verified 01/30/22 21:04 remember Home Medications Medication Instructions Recorded Confirmed Type cetirizine 10 mg capsule (Zyrtec) 10 mg PO QAM PRN Allergic Symptoms 08/20/21 01/30/22 History fluticasone propionate 50 2 spray intranasal DAILY #16 grams 10/14/21 01/30/22 Rx mcg/actuation nasal spray,suspension levothyroxine 150 mcg tablet 150 mcg PO DAILY #30 tabs 12/23/21 01/30/22 Rx L norgest/E estradiol-E estrad 1 tab PO QPM 01/30/22 01/30/22 History 0.15 mg-30 mcg (84)/10 mcg(7) tabs,3mos (Seasonique) albuterol sulfate 90 mcg/actuation 2 puff inhalation Q8H PRN 01/30/22 01/30/22 History aerosol inhaler Shortness Of Breath Or Wheezing doxycycline hyclate 100 mg capsule 100 mg PO BID 01/30/22 01/30/22 History promethazine-DM 6.25 mg-15 mg/5 mL 5 ml PO Q8H PRN Cough 01/30/22 01/30/22 History oral syrup Patient History Medical History Asthma has not had an issue in years- since around 2018- no longer uses inhaler Frequent sinus infections Hypothyroidism Hypothyroidism Seasonal allergies Sinus drainage Surgical History History of endoscopic sinus surgery 10/17/21 History of intestinal surgery shortly after History of tonsillectomy History of tooth extraction [place] teeth removed Family History Grandmother (Maternal) Diabetes Breast cancer Mother Diabetes Grandfather (Maternal) Emphysema of lung Father Hypertension Dyslipidemia Denies family history of Ovarian cancer Colorectal cancer Social History Smoking Status: Never smoker Second Hand Exposure: No; Hx Alcohol Use: Yes Hx Substance Use: No Preferred Language: Italian Communication Ability: Effective Visual Impairment: Limited Control Engineer Required: No Beliefs That Will Affect Care: None marital status: Single Current Living Situation: Alone current occupational status: employed current occupation: [email or web address] Other Information That Helps Us Care for You: No Feels Safe at Home: Yes Safety Concerns: Feels Safe At This Time Childhood Exposure to Second-Hand Smoke: No caffeine: Yes Dental Care, Regularly: Yes Physical Activity Frequency: 5-6 Times per Week Seatbelt Use: always Sunscreen Use: Yes Assistive Devices: None Review of Systems Review of Systems: Denies fever, chill, abdominal discomfort, nausea, vomiting, diarrhea, hemoptysis, melena, hematochezia, hematemesis, dysuria or hematuria. The remainder of her 12 point review is negative except as per HPI. Physical Exam Constitutional: WD/WN, vitals as above Eyes: PERRL, conjunctivae normal, anicteric sclerae ENMT: external ear and nose normal, oropharynx normal Neck: No JVD appreciated Respiratory: Bilateral basilar dullness, scattered crackles, no wheezing or rhonchi. Poor air movement. Cardiovascular: Regular rhythm with mildly tachycardic rate. In sinus tachycardia on the monitor. Grade 2 out of 6 systolic murmur. S4 gallop. Trace bilateral lower extremity edema. 2+ distal pulses. Gastrointestinal (Abdomen): NABS. Musculoskeletal: no cyanosis or clubbing, extremities motor strength 5/5 Neurologic: Cognition is intact. Speech is fluent. No focal deficits. No tremor. Ambulates normally. Psychiatric: A+Ox3, euthymic affect Results & Data ([facility]) Vital Signs (Past 12 Hours) Vital Signs Temp Pulse Pulse Resp BP Pulse Ox O2 Del Method 01/31/22 11:50 36.4 C L 127 H 18 121/80 96 Nasal Cannula 01/31/22 07:46 36.3 C L 114 H 20 121/80 94 Room Air, Nasal Cannula 01/31/22 07:00 98 H 01/31/22 06:19 70 25 H 96 01/31/22 04:23 36.6 C 108 H 18 139/81 94 Room Air 01/31/22 02:45 126 H 20 21 L BiPAP 01/31/22 00:26 126 H O2 Flow Rate FiO2 01/31/22 11:50 1 01/31/22 07:46 2 01/31/22 07:00 01/31/22 06:19 21 01/31/22 04:23 01/31/22 02:45 01/31/22 00:26 PG Care Time/CCT Total # of Minutes Spent Total Time Spent with Patient: Total time spent is greater than 50% in coordination of care (as documented) at patient's floor/unit and/or counseling patient: [place] [address] Inpt Consult Level 5 Patient Type New Diagnoses Cardiomyopathy I42.9 Mitral regurgitation, acute I34.0 Acute systolic (congestive) heart failure I50.21
--- NOTE | 2022-01-31 14:24 | Pre Anesthesia Assessment ---
Date of Service January 31, 2022 Pre Sedation Assessment Vital Signs Temp Pulse Pulse Resp BP BP Pulse Ox 01/31/22 11:50 36.4 C L 127 H 18 121/80 96 01/31/22 07:46 36.3 C L 114 H 20 121/80 94 01/31/22 07:00 98 H 01/31/22 06:19 70 25 H 96 01/31/22 04:23 36.6 C 108 H 18 139/81 94 01/31/22 02:45 126 H 20 21 L 01/30/22 18:32 01/31/22 00:26 126 H 01/30/22 21:00 122 H 01/30/22 22:09 01/30/22 22:09 36.5 C 122 H 18 123/77 96 01/30/22 19:00 126 H 36 H 134/100 98 01/30/22 18:39 138/105 H 01/30/22 18:39 132 H 24 93 01/30/22 18:33 94 01/30/22 18:00 133 H 25 H 95 01/30/22 18:00 119/93 01/30/22 17:30 129 H 34 H 129/99 91 01/30/22 17:48 130 H 22 95 01/30/22 17:00 125 H 30 H 133/97 95 01/30/22 16:52 127 H 30 H 97 01/30/22 16:47 01/30/22 16:27 36.3 C L 135 H 20 139/84 96 Pulse Ox O2 Del Method O2 Del Method O2 Flow Rate O2 Flow Rate FiO2 01/31/22 11:50 Nasal Cannula 1 01/31/22 07:46 Room Air, Nasal Cannula 2 01/31/22 07:00 01/31/22 06:19 21 01/31/22 04:23 Room Air 01/31/22 02:45 BiPAP 01/30/22 18:32 96 Nasal Cannula 2 01/31/22 00:26 01/30/22 21:00 01/30/22 22:09 Nasal Cannula 2 01/30/22 22:09 Nasal Cannula 2 01/30/22 19:00 01/30/22 18:39 01/30/22 18:39 01/30/22 18:33 01/30/22 18:00 BiPAP 01/30/22 18:00 01/30/22 17:30 Room Air 01/30/22 17:48 21 01/30/22 17:00 Room Air 01/30/22 16:52 Room Air 01/30/22 16:47 Room Air 01/30/22 16:27 Room Air Cardiovascular Additional Comments: sinus tachycardia, grade 2/6 SM Respiratory Additional Comments: bibasilar dullness. No W/R. scattered crackles Pre-Sedation Airway Assessment Smoking Status: Never smoker Hx Sleep Apnea: No Short, Thick Neck: No Thyromental Distance: > or= 3.5 Finger Breadths Oral Cavity: + WNL Mallampati Class: II ASA: ASA3 NPO Status Date of Last Intake of Fluids: 01/31/22 Time of Last Intake of Fluids: 08:00 Date of Last Intake of Solid Food: 01/31/22 Time of Last Intake of Solid Foods: 08:00 Notes The planned sedation has been discussed with the patient. Informed Consent was obtained. I have identified the patient, determined the appropriateness of sedation and have assessed the patient immediately prior to the procedure. All medicine(s) and interventions are by my order.
[2022-01-31] MEDS ORDERED: MIDAZOLAM HCL 1 MG/ML 2ML VIAL ONE (14:27)
[2022-01-31] MEDS ORDERED: HEPARIN (PORCINE) 1000 UNIT/ML 10 ML (CATH LAB USE ONLY) ONE (14:27)
[2022-01-31] MEDS ORDERED: fentaNYL citrate 100 MCG/2 ML VIAL ONE (14:27)
[2022-01-31] MEDS ORDERED: niCARdipine HCL INJ 2.5 MG/ML 10 ML AMP ONE (14:27)
[2022-01-31] MEDS ORDERED: NITROGLYCERIN/D5W 100MCG/ML 20ML SYR ONE (14:28)
--- NOTE | 2022-01-31 15:17 | Hospitalist Progress Note ---
Date of Service January 31, 2022 Assessment & Plan (1) Acute systolic (congestive) heart failure: Plan: Symptoms ongoing for 3 weeks. Lasix 40 mg twice daily IV with follow up of BMP for magnesium and potassium. Differential diagnosis ischemic cardiomyopathy from an VT 3 weeks ago when symptoms started versus acute viral myocarditis causing cardiomyopathy . Cardiology consulted. Discussed with Dr. Quigley earlier today. Beta-blockers (2) Acute asthma exacerbation: Plan: Started Breo Ellipta. Pulmonology has evaluated : uncertain etio of pleural effusions but no indication for thoracentesis. Prednisone 20 mg daily. Solu- Medrol stopped (3) Hypothyroidism: Plan: TSH quite low, reduced levothyroxine from 1 50-125 MCG daily (4) Menorrhagia with regular cycle: Plan: Normocytic anemia mild hemoglobin 10. This is a 3 g drop in 6 months (5) Obesity (BMI 30.0-34.9): Plan: Needs to see a PCP regularly for health maintenance (6) Seasonal allergies: Plan: Continue home antihistamine Zyrtec (7) Mitral regurgitation, acute: Plan: Ischemic versus from dilated cardiomyopathy due to myocarditis Plan In light of severely reduced ejection fraction, cardiac catheterization was done this afternoon. the result is not yet available. Diuresis and consideration of LifeVest Admission and Anticipated Discharge Date Admission Date: January 30, 2022 Subjective seen at 1130 Feels fine Still sitting up to be comfortable including while asleep Anxious about new diagnosis which is heart failure. 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, walked to the bathroom unassisted Affectmostly calm, good insight and judgment Results & Data Results & Data ([place]) Vital Signs (Past 12 Hours) Vital Signs Temp Pulse Pulse Resp BP Pulse Ox O2 Del Method 01/31/22 14:55 124 H 18 126/83 95 Room Air 01/31/22 11:50 36.4 C L 127 H 18 121/80 96 Nasal Cannula 01/31/22 07:46 36.3 C L 114 H 20 121/80 94 Room Air, Nasal Cannula 01/31/22 07:00 98 H 01/31/22 06:19 70 25 H 96 01/31/22 04:23 36.6 C 108 H 18 139/81 94 Room Air O2 Flow Rate FiO2 01/31/22 14:55 01/31/22 11:50 1 01/31/22 07:46 2 01/31/22 07:00 01/31/22 06:19 21 01/31/22 04:23 Laboratory Results Abnormal lab results 01/30/22 01/30/22 01/30/22 Range/Units 16:40 16:40 17:05 Hgb 10.5 L (12.0-16.0) g/dl POC Hgb 11.2 L (12.0-16.0) g/dl Hct 33.5 L (34.1-44.9) % POC Hct 33 L (37-47) % MCHC 31.3 L (32.0-36.0) g/dL RDW Coeff of Ayla 14.6 H (11.5-14.5) % Plt Count 576 H (130-400) K/uL Neut # (Auto) 7.47 H (1.4-6.5) K/uL Immature Gran # (Auto) 0.04 H (0.00-0.02) K/uL POC pCO2 (35-46) mmHg POC pO2 (80-95) mmHg Chloride (98-107) mmol/L Carbon Dioxide (21-32) mmol/L POC Total CO2 21 L (24-31) mmol/L BUN/Creatinine Ratio (10-20) Glucose 108 H (70-99(Fasting)) mg/dl POC Glucose (other) 105 H (70-99) mg/dl Calcium 8.1 L (8.5-10.1) mg/dl POC Ioniz Calcium Linh 1.11 L (1.12-1.32) mmol/l Troponin I High Sens 23.3 H (0-14) pg/ml B-Natriuretic Peptide (0-100) pg/ml 01/30/22 01/30/22 01/30/22 Range/Units 17:19 18:13 23:02 Hgb (12.0-16.0) g/dl POC Hgb 10.5 L (12.0-16.0) g/dl Hct (34.1-44.9) % POC Hct 31 L (37-47) % MCHC (32.0-36.0) g/dL RDW Coeff of Ayla (11.5-14.5) % Plt Count (130-400) K/uL Neut # (Auto) (1.4-6.5) K/uL Immature Gran # (Auto) (0.00-0.02) K/uL POC pCO2 29 L (35-46) mmHg POC pO2 71 L (80-95) mmHg Chloride (98-107) mmol/L Carbon Dioxide (21-32) mmol/L POC Total CO2 19 L (24-31) mmol/L BUN/Creatinine Ratio (10-20) Glucose (70-99(Fasting)) mg/dl POC Glucose (other) (70-99) mg/dl Calcium (8.5-10.1) mg/dl POC Ioniz Calcium Linh (1.12-1.32) mmol/l Troponin I High Sens 27.6 H (0-14) pg/ml B-Natriuretic Peptide 377 H (0-100) pg/ml 01/31/22 Range/Units 07:12 Hgb (12.0-16.0) g/dl POC Hgb (12.0-16.0) g/dl Hct (34.1-44.9) % POC Hct (37-47) % MCHC (32.0-36.0) g/dL RDW Coeff of Ayla (11.5-14.5) % Plt Count (130-400) K/uL Neut # (Auto) (1.4-6.5) K/uL Immature Gran # (Auto) (0.00-0.02) K/uL POC pCO2 (35-46) mmHg POC pO2 (80-95) mmHg Chloride 108 H (98-107) mmol/L Carbon Dioxide 20 L (21-32) mmol/L POC Total CO2 (24-31) mmol/L BUN/Creatinine Ratio 21.0 H (10-20) Glucose 198 H (70-99(Fasting)) mg/dl POC Glucose (other) (70-99) mg/dl Calcium 8.0 L (8.5-10.1) mg/dl POC Ioniz Calcium Linh (1.12-1.32) mmol/l Troponin I High Sens (0-14) pg/ml B-Natriuretic Peptide (0-100) pg/ml PG Care Time/CCT Total # of Minutes Spent Total Time Spent with Patient: Total time spent is greater than 50% in coordination of care (as documented) at patient's floor/unit and/or counseling patient: Coding Level of Care Code 81056 Subseq Hosp Care Lvl 3 Diagnoses Acute systolic (congestive) heart failure I50.21 Acute asthma exacerbation J45.901 Hypothyroidism E03.9 Menorrhagia with regular cycle N92.0 Obesity (BMI 30.0-34.9) E66.9 Seasonal allergies J30.2 Mitral regurgitation, acute I34.0
[2022-01-31] MEDS ORDERED: ACETAMINOPHEN 325 MG TAB PO PRN (15:27)
--- NOTE | 2022-01-31 15:47 | Cardiac Catheterization ---
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 Cardiac Status Clinical evaluation leading to the procedure Acute decompensated heart failure with reduced ejection fraction CAD Presenation: Non STEMI Anginal Classification: CCS IV (Short of breath) Heart Failure: NYHA Class: CCS IV Cardiogenic Shock within 24 Hours: No Cardiac Arrest within 24 Hours: No Imaging Studies Past 6 Months: No Coronary Anatomy Left Main (% Stenosis): Normal LAD (% Stenosis): Normal D1 (% Stenosis): Normal D2 (% Stenosis): Normal Circumflex (% Stenosis): Normal OM1 (% Stenosis): Normal L PL1 (% Stenosis): Normal RCA (% Stenosis): Normal R PDA (% Stenosis): Normal R PL1 (% Stenosis): Normal Diagnostic Physicians Name: Tigre Quigley MD, PhD Closure Device Percutaneous Entry Location: Radial Closure Device: Radial Band Recommendations: Medical Therapy and/or Counseling Cardiac Cath Procedure Full Procedure Date January 31, 2022 Pre-Procedure Diagnosis Pre-Procedure Diagnosis: Cardiomyopathy AUC Score AUC Score: 06 Post-Procedure Diagnosis Post-Procedure Diagnosis: Normal Coronary Arteries Procedure(s) Performed Procedure(s) Performed: Coronary Angiography Senior Mainframe Developer Tigre Quigley MD, PhD Estimated Blood Loss Estimated Blood Loss: 5 ml Medication(s) Medication(s): Fentanyl, Heparin, Hydralazine, Metoprolol, Nicardipine, Nitroglycerin and Versed Summary of Findings Brief description: Patient was brought to the cardiac catheterization suite where she was shaved and prepped in a sterile fashion. Sedated using IV Versed and fentanyl. Soft tissues of the right wrist were anesthetized using 2 mL of 1% Xylocaine. The right radial artery was accessed using a modified Seldinger technique and a 6 [facility] radial artery glide sheath was placed. Patient was provided anticoagulation with IV heparin and antispasmodics including nicardipine and nitroglycerin. All catheters were advanced and exchanged over a 0.035 J-tip wire. Left coronary angiography was performed in orthogonal views with a 5 [place] TIGR 4 diagnostic catheter. Right coronary angiography was performed in orthogonal views with a 5 [place] TIGR4 diagnostic catheter. Diagnostic catheters were removed. Radial artery sheath was removed. Hemostasis was obtained using a TR band. Patient was hemodynamically stable and asymptomatic. She was returned to the recovery area. This ended the case. Coronary angiography findings: LMT: Large-caliber vessel bifurcating into the LAD and left circumflex. There is no angiographically evident disease. LAD: Large caliber and transapical. Provides a large septal trunk and at the same level a bifurcating and multi branching first diagonal. Then, the mid segment is medium to large in caliber providing a medium to large caliber branching diagonal and a smaller distal LAD which provides to septal perforators. No angiographically evident disease in the LAD or its branches. LCx: Large caliber and nondominant. Travels in the AV groove providing an atrial branch and a large multi branching OM1. The mid AV groove vessel then becomes medium in caliber and terminates distally and a small caliber bifurcating posterior lateral. There is no angiographically evident disease in the circumflex or its branches. RCA: Large caliber and dominant vessel. Provides several RV marginal branches. Becomes medium caliber distally and bifurcates into a PDA and posterolateral branch. There is no angiographically significant disease in the RCA or its branches. Summary: 1. There is no angiographically evident coronary disease. 2. Recommendations. Patient will be initiated on medications for chronic systolic heart failure. Nonischemic cardiomyopathy. Hemodynamics Rest Ao:: 120/88 mmHg, mean 101 mmHg Final Ao: 108/87 mmHg, mean 94 mmHg LV: Not performed Recommendations Recommendations: Medical Therapy and/or Counseling Radiation Exposure (mGy) 863 mGy, fluoroscopy time 1.3 minutes Contrast (mls) 70 mL Anesthesia 1 mg IV Versed, 25 mg IV fentanyl Procedural Complication(s) None Disposition Recovery Room\PACU I attest to the content of the Intraoperative Record and any orders documented therein. Any exceptions are noted below. [facility] Card Cath Procedure Codes Cardiac Catheterization Procedure 1: Cardiovascular Cath Procedures: 38151 Coronaries Moderate Sedation Procedure 1: Sedation/Anesthesia: 07091 Mod Sedation by the same physician;Init15 Min Child Age 5 & Up (14 minutes) PG Care Time/CCT Total # of Minutes Spent Total Time Spent with Patient: Total time spent is greater than 50% in coordination of care (as documented) at patient's floor/unit and/or counseling patient:
--- NOTE | 2022-01-31 15:48 | Post Anesthesia Assessment ---
Date of Service January 31, 2022 Post Sedation Assessment Vital Signs Temp Pulse Pulse Resp BP BP Pulse Ox 01/31/22 14:55 124 H 18 126/83 95 01/31/22 11:50 36.4 C L 127 H 18 121/80 96 01/31/22 07:46 36.3 C L 114 H 20 121/80 94 01/31/22 07:00 98 H 01/31/22 06:19 70 25 H 96 01/31/22 04:23 36.6 C 108 H 18 139/81 94 01/31/22 02:45 126 H 20 21 L 01/30/22 18:32 01/31/22 00:26 126 H 01/30/22 21:00 122 H 01/30/22 22:09 01/30/22 22:09 36.5 C 122 H 18 123/77 96 01/30/22 19:00 126 H 36 H 134/100 98 01/30/22 18:39 138/105 H 01/30/22 18:39 132 H 24 93 01/30/22 18:33 94 01/30/22 18:00 133 H 25 H 95 01/30/22 18:00 119/93 01/30/22 17:30 129 H 34 H 129/99 91 01/30/22 17:48 130 H 22 95 01/30/22 17:00 125 H 30 H 133/97 95 01/30/22 16:52 127 H 30 H 97 01/30/22 16:47 01/30/22 16:27 36.3 C L 135 H 20 139/84 96 Pulse Ox O2 Del Method O2 Del Method O2 Flow Rate O2 Flow Rate FiO2 01/31/22 14:55 Room Air 01/31/22 11:50 Nasal Cannula 1 01/31/22 07:46 Room Air, Nasal Cannula 2 01/31/22 07:00 01/31/22 06:19 21 01/31/22 04:23 Room Air 01/31/22 02:45 BiPAP 01/30/22 18:32 96 Nasal Cannula 2 01/31/22 00:26 01/30/22 21:00 01/30/22 22:09 Nasal Cannula 2 01/30/22 22:09 Nasal Cannula 2 01/30/22 19:00 01/30/22 18:39 01/30/22 18:39 01/30/22 18:33 01/30/22 18:00 BiPAP 01/30/22 18:00 01/30/22 17:30 Room Air 01/30/22 17:48 21 01/30/22 17:00 Room Air 01/30/22 16:52 Room Air 01/30/22 16:47 Room Air 01/30/22 16:27 Room Air Recovery Score Activity: Moves 4 extremities Respiration: Deep Breath/Cough Circulation: +/-20% PreAnes Value Consciousness: Fully Awake Oxygen Saturation: > 92% On Room Air Post Anesthesia Score: 10 Discharge Sedation Level of Care: Phase I Post Sedation Plan On clinical assessment, the patient appears to have tolerated the sedation without complications. Patient is recovering as anticipated. Patient will continue to be monitored by nursing and may be discharged when sedation discharge criteria are met per below protocol. Upon Completions of procedure up to 15 minutes continue every 5 minute vital signs and the P.A.R. score; then discharge to a Phase I or Fast Track to Phase II per the following guidelines: * Discharge Patient to appropriate Phase II area if PAR is 8 or greater or return to pre- procedure baseline. The post - procedure orders will be as directed. * If PAR score is less than 8 or not return to pre-procedure baseline then patient will follow Phase I monitoring till PAR is reached for Phase II. The Phase I may be done in procedure room or may call to secure a Phase I area. * If naloxone or flumazenil are used for reversal, hold in Phase I for continued monitoring from when last reversal dose was given for a minimum of 60 minutes or longer pending the nurse and/or physician discretion of patient condition before discharge to Phase II. Please call the Sedation Physician to re-evaluate and complete post-note for discharge to Phase II area. Do NOT discharge from procedure sedation or Phase 1 until post- sedation evaluation note is complete by procedure /sedation MD Sedation Discharge Instructions to be given to the patient at discharge to home. [facility] Procedure Codes (Charges) Indication for Procedure Indication for procedure: Cardiomyopathy, non-ST elevation Sedation/Anesthesia Procedure 1: Sedation/Anesthesia: 49482 Mod Sedation by the same physician;Init15 Min Child Age 5 & Up Total Sedation Time (minutes): 14
--- NOTE | 2022-01-31 16:42 | Cardiology Progress Note ---
Date of Service January 31, 2022 Assessment & Plan (1) Acute systolic (congestive) heart failure: Plan: Still has some volume overload. We will continue IV Lasix and reassess volume status in the morning. Follow renal function. Replace electrolytes as needed to keep within normal limits. (2) Cardiomyopathy: Plan: She has nonischemic cardiomyopathy. Likely viral versus thyroid disease. Initi ating chronic therapy with carvedilol 3.125 mg p.o. twice daily. She has a history of asthma but the severity of her reactive airway disease is unclear. She should be able to tolerate low-dose beta-elvia. If not, we will have to find alternative therapy. Additionally, I would like to begin Entresto at lowest dose twice daily to begin tomorrow. Hopefully her blood pressure will tolerate the addition of this medication. These 2 agents in combination will give her the best chance for recovery of her EF. She can also be considered for SGLT 2 inhibitor which can be started either prior to discharge or on follow-up in the cardiology office. Similarly, spironolactone would be a reasonable adjuvant. She has been given instructions for post cath care. She should follow-up with me in the cardiology office within 2 to 3 weeks of discharge. She may gradually increase her physical activity as tolerated except with temporary limitations as described in the post cath instructions. When she is euvolemic she will be appropriate for discharge. If there are any questions the writer technical publications on-call may be contacted. We will see her as needed if she remains hospitalized over the weekend. Admission and Anticipated Discharge Date Admission Date: January 30, 2022 Subjective Patient feeling well post catheterization. We discussed the results and absence of coronary disease. We also discussed the risk of sudden cardiac for EF less than 35%. She is awaiting wearable defibrillator fitment. Her family is present at the bedside. No complaints at this time. Results & Data ([facility]) Vital Signs (Past 12 Hours) Vital Signs Temp Pulse Pulse Resp BP Pulse Ox O2 Del Method 01/31/22 16:10 126 H 18 105/72 95 Nasal Cannula 01/31/22 15:40 125 H 16 130/72 97 Nasal Cannula 01/31/22 15:25 37 C 72 16 128/77 97 Nasal Cannula 01/31/22 14:55 124 H 18 126/83 95 Room Air 01/31/22 11:50 36.4 C L 127 H 18 121/80 96 Nasal Cannula 01/31/22 07:46 36.3 C L 114 H 20 121/80 94 Room Air, Nasal Cannula 01/31/22 07:00 98 H 01/31/22 06:19 70 25 H 96 O2 Flow Rate FiO2 01/31/22 16:10 1 01/31/22 15:40 1 01/31/22 15:25 1 01/31/22 14:55 01/31/22 11:50 1 01/31/22 07:46 2 01/31/22 07:00 01/31/22 06:19 21 PG Care Time/CCT Total # of Minutes Spent Total Time Spent with Patient: Total time spent is greater than 50% in coordination of care (as documented) at patient's floor/unit and/or counseling patient: Coding Level of Care Code None Diagnoses Acute systolic (congestive) heart failure I50.21 Cardiomyopathy I42.9
[2022-01-31] MEDS: FUROSEMIDE 40 MG/4 ML VIAL IV SCH (20:53)
[2022-01-31] MEDS: carvediloL 3.125 MG TAB PO SCH (20:53)
[2022-01-31] MEDS ORDERED: ENOXAPARIN INJ 40 MG/0.4 ML SYR SQ SCH (21:00)
[2022-01-31] MEDS ORDERED: PATIENT'S OWN ORAL CONTRACEPTIVE PO SCH (21:00)
[2022-02-01] MEDS: guaiFENesin/DEXTROM SYRUP 100MG/10MG 5ML UDC PO PRN ×2 (00:44→08:29)
[2022-02-01] MEDS ORDERED: LEVOTHYROXINE SODIUM 125 MCG TABLET PO SCH (06:30)
[2022-02-01] MEDS ORDERED: VANCOMYCIN LEVEL ONE (07:00)
[2022-02-01 07:38] LABS: Calcium 7.8 mg/dl (8.5-10.1); Chol HDL Ratio 4.2 (0-5); Creatinine Clr Calc Pharmacy 104.2 ml/min; Est GFR (African American) 119.1 ml/min; Est GFR (Non-African American) 102.8 ml/min; Potassium 3.8 mmol/L (3.5-5.1)
[2022-02-01] MEDS: FLUTICASONE PROPIONATE NA SPR 16 GM BTL SCH (08:29)
[2022-02-01] MEDS: FUROSEMIDE 40 MG/4 ML VIAL IV SCH (08:29)
[2022-02-01] MEDS: FLUTICASONE/VILANTEROL 100/25MCG 14 PUFFS/INHALER INH SCH (08:29)
[2022-02-01] MEDS: predniSONE 20 MG TAB PO SCH (08:29)
[2022-02-01] MEDS: carvediloL 3.125 MG TAB PO SCH (08:29)
[2022-02-01] MEDS: FAMOTIDINE 20 MG TAB PO SCH (08:29)
[2022-02-01] MEDS ORDERED: VALSARTAN/SACUBITRIL 26/24MG TAB PO SCH (09:00)
--- NOTE | 2022-02-01 10:50 | Pulmonology Progress Note ---
Date of Service February 01, 2022 Assessment & Plan (1) Pleural effusion: (2) Pulmonary edema: (3) Asthma: (4) Hypoxemia: Plan Impression: 36-year-old female with remote history of asthma admitted with new onset heart failure and moderate to severe mitral regurgitation. Cardiac c atheterization showed no evidence of obstructive coronary disease. Recommendations: 1. Acute hypoxemic respiratory failure: Secondary to pulmonary edema. Continue diuretics and heart failure management. Wean oxygen as tolerated 2. Asthma: I am not entirely convinced the patient has asthma and if she does that does not appear to be the predominant issue for her currently. Would continue Breo for now. Discontinue steroids. Outpatient PFTs can be considered. Agree with cardiology that the benefits of beta-elvia outweigh any risk so would go ahead and proceed with carvedilol. She is not bronchospastic currently. 3. Heart failure with reduced ejection fraction: Pulmonary edema with bilateral pleural effusions: Continue goal-directed therapy under the direction of cardiology. 4. Cough: Secondary to upper airway cough syndrome. Therapy typically consists of decongestants, antihistamines, topical nasal steroids, and saline sinus irrigation. At this point time the patient's main issues appear to be cardiac related. I do not think the patient had an active asthma exacerbation. Pulmonary will sign off. I would be happy to see her back in the pulmonary clinic if needed. Admission and Anticipated Discharge Date Admission Date: January 30, 2022 Subjective Patient reports that she is feeling better with regards to her breathing. She had a cardiology consultation performed yesterday and was taken to the cardiac [employer] which revealed no evidence of coronary disease. She has been diuresing, I's and O's not accurately tracked. She denies any chest pain or significant lower extremity edema. She is occasionally coughing but feels this is secondary to her sinuses. She uses saline sinus irrigation at home. Review of Systems Review of Systems: All systems reviewed & are unremarkable except as noted in Subjective Physical Exam Constitutional: WD/WN, vitals as above Neck: trachea midline, no thyromegaly Respiratory: normal respiratory effort and + cough; no respiratory distress, no labored breathing and not tachypneic Auscultation: + crackles; no wheezes Cardiovascular: RRR, no murmur, no edema Gastrointestinal (Abdomen): normal bowel sounds, soft, nontender, no hepatosplenomegaly Musculoskeletal: Extremities: extremities normal to inspection Skin: no rashes, warm and dry Lymphatic: no cervical lymphadenopathy Results & Data Results & Data ([facility]) Vital Signs (Past 12 Hours) Vital Signs Temp Pulse Pulse Pulse Resp BP Pulse Ox 02/01/22 07:44 36.5 C 107 H 18 105/73 98 02/01/22 07:00 89 02/01/22 04:18 36.5 C 104 H 18 98/66 L 98 01/31/22 23:24 123 H O2 Del Method O2 Flow Rate 02/01/22 07:44 Nasal Cannula 3 02/01/22 07:00 02/01/22 04:18 Room Air 01/31/22 23:24 Laboratory Results 01/30/22 16:40 02/01/22 06:22 Diagnostic Findings Cardiac catheterization from yesterday showed normal coronaries. PG Care Time/CCT Total # of Minutes Spent Total Time Spent with Patient: Total time spent is greater than 50% in coordination of care (as documented) at patient's floor/unit and/or counseling patient: Coding Level of Care Code 63660 Subseq Hosp Care Lvl 2 Diagnoses Pleural effusion J90 Pulmonary edema J81.1 Asthma J45.909 Hypoxemia R09.02
[2022-02-01] MEDS ORDERED: CHOLECALCIFEROL 1,000 UNITS 25 MCG TAB PO SCH (11:15)
[2022-02-01] MEDS ORDERED: CHOLECALCIFEROL 5,000 UNITS 125 MCG TAB PO SCH (11:45)
[2022-02-01] MEDS ORDERED: ERGOCALCIFEROL 50,000 UNITS 1250 MCG CAP PO ONE (12:00)
--- NOTE | 2022-02-01 15:29 | Discharge Summary ---
Date of Service February 01, 2022 Admission HPI Per Admitting Provider 36 F employed in the [employer] with past medical history of asthma (not on any medications and not seeing any primary care physician), recent right ethmoid sinus surgery for silent sinus syndrome 10/17/2021, presents with a 3-week history of cough with clear sputum and a 1 week history of increasing shortness of breath. Cough with clear sputum for which she saw [facility] 6 days ago was prescribed doxycycline for 14 days. She was told she has pneumonia after chest x-ray. She noticed no improvement and for the last few days has been sitting up in bed to breathe. Occasionally hears herself wheezing. Presented to the ED with her [id number] today with a heart rate in the 130s and respiratory rate initially at 40/min. Initial ER diagnosis of CHF was made from some cardiomegaly seen on the CTA which had ruled out a pulmonary embolus and pneumonia. Also has moderate pleural effusions. No fever. Fully COVID vaccinated and booster dose October. Negative Sars- COV2 PCR 6 days ago in [facility]. Got 40 mg IV Lasix by the time I evaluated in the ER where she was on BiPAP 01/23 9on room air) saturating 95%. On walking to the bathroom and back off BiPAP was in no significant respiratory distress and sats remained 96 to 98% on room air with significant tachycardia sinus. ABGs RA revealed respiratory alkalosis 7.408/29.3/71/95% ROS : No palpitations/fever/chills chest pain with persistent cough, orthopnea as mentioned above for the last few days sitting up to breathe at night, no significant weight gain. No leg swelling. No known heart condition or diagnosis Menorrhagia for as long as she is had periods and uses oral contraceptive pills to control it. No skin changesurinary symptoms/nausea/vomiting No syncope or dizziness. No confusion noted (corroborated by [id number] in the room), does not report any skin rash 2 loose bowel movements per day for the last 3 to 4 days, Denies depressed mood No dyspnea on exertion at baseline and walks to the bus from her workplace in [employer] because she does not like driving. Admission Exam Per Admitting Provider Pleasant obese lady, able to give a lucid history, no acute distress even off BiPAP Heart rate 132, respiratory rate 30/min, temperature 36.3, sats 98% on room air with and without BiPAP 01/23 Chest very diminished entry breath sounds bilaterally, no wheezes CVS S1-S2 tachycardia Abdomen obese nontender Extremities trace edema [employer] grossly intact, walked to the bathroom unassisted Affectslightly tearful describing her mother's at age 62 from CHF 7 years ago, rest of the time was cheerful, good insight and judgment Principal Diagnosis Non-ischemic cardiomyopathy Discharge Exam Constitutional WD/WN, vitals as above Eyes + anicteric sclerae ENMT external ear and nose normal, oropharynx normal Neck trachea midline, no thyromegaly Respiratory Auscultation: + crackles (faint in RLL) Cardiovascular RRR, no murmur, no edema Musculoskeletal Head/Neck/Chest: normocephalic and head atraumatic Skin no rashes, warm and dry Neurologic moves all extremities Psychiatric A+Ox3, euthymic affect Discharge Data Allergies Allergy/AdvReac Type Severity Reaction Status Date / Time Latex, Natural Rubber Allergy Mild Redness of Verified 01/30/22 17:07 Skin Penicillins Allergy Unknown can't Verified 01/30/22 21:04 remember Consultations 01/30/22 17:42 ED Decision to Admit Stat 01/30/22 23:09 Consult Pulmonology Routine 01/31/22 09:58 Consult Cardiology Routine Procedures Performed Operation Date: 01/31/22 14:00 Actual Procedures s Cineradiography w/Routine Exam - Tigre Quigley MD, PhD p Cath, Coronaries ONLY (no LV) - Tigre Quigley MD, PhD Ordered Studies 01/30/22 16:50 CT angio chest PE protocol Stat 01/31/22 13:48 CL Cath Imgs for PACS use only Stat Hospital Course (1) Cardiomyopathy: Nena is a 36 yo F who was admitted to [facility] on 01/30/22 for new onset cough and SOB. - CXR on admission was normal but chest CTA showing Moderate pulmonary edema with moderate right and small left pleural effusions. Mild cardiomegaly with left ventricular dilatation. - BNP elevated to 377 on admission - Symptoms found to be due to new cardiomyopathy, as echo showed EF of 25-30%. - Cardiology was consulted who recommended a catheterization --> this was done on 01/31/22 and showed no evidence of vascular disease. Thus, patient with non- ischemic cardiomyopathy. The origin remains uncertain, suspect viral illness vs. thyroid disease. Patient was started on Entresto 24-26mg BID, Coreg 3.125mg BID and lasix 40mg IV. The latter was converted to 80 mg BID PO at discharge. Repeat BMP order placed for patient to have drawn in 4 days - Additionally, due to her profoundly low EF, patient was fitted with a life vest prior to discharge. Follow up with PCP in 5 days. Follow up with Cardiology in 2-3 weeks. (2) Asthma: - remote history of mild intermittent asthma - pulmonology was consulted during hospital stay in the event Asthma exacerbati on was contributory to hypoxia --> ultimately felt to be unlikely contributor. Breo Ellipta inhaler was given to her at discharge to use but formal PFTs recommended as outpatient. - IgE level was drawn while in hospital and pending at the time of discharge - she was treated with steroids while inpatient but these were discontinued upon discharge (3) Hypocalcemia: - new problem - noted to be 7.9 (corrected). Kidney function normal. Vitamin D level returned very low at 10. PTH elevated as well. - Etiology likley due to vit D deficiency. Recommend high dose supplementation 50,000 IU weekly for 6 weeks to build up stores. Script sent to pharmacy (4) Hypothyroidism: - TSH had been above goal in 07/2021 at 10, 09/2021 at 8.7, and on 12/19/21 at 4.7. - TSH on admission was 0.44 - levothyroxine dose reduced in response to low TSH from 150mcg daily to 125mcg dialy - recheck TSH in 6 weeks as outpatient Total Time Total Time Spent Total Time Spent (In Minutes): 40 Discharge Plan Discharge Items Patient Disposition: Home - Self-Care Reason For Visit: ASTHMA WITH TACHYCARDIA Discharge Diagnosis: non-ischemic cardiomyopathy Activity: Per Instructions section Non-emergency contact: Veterinary Radiologist Call non-emergency contact if: you have any medication questions, your symptoms worsen, your pain is not controlled, you have a fever, your wound has increased redness and your wound has increased drainage Follow-up/Referrals: Jin Aguilar MD [Primary Care Provider] - Sobia Lee MD [Physician] - Diet: Low Sodium (2gm) Ambulatory Orders: Basic Metabolic Panel (Routine) Timeframe: 4 Days Location: Determined by Patient Ordered By: Sobia eLe Addtl Attending Provider Instructions: ACTIVITY RECOMMENDATIONS: Excess manipulation of the wrist should be avoided for the next 24-48 hours. * No lifting over 2 pounds (approximately a 1/2 gallon of milk) with the utilized arm for 24 hours. * No strenuous activity such as bowling or tennis for 3 days. * Keep the site of the procedure covered with a bandage for 24 hours. *You may shower the day after the procedure. Do not take a tub bath or submerge the puncture site in water for the next 3 days. *Do not operate any motorized equipment for 3 days. SPECIAL CARE INSTRUCTIONS: The site may be slightly bruised and sore following your procedure. Should any of the following occur, contact the Dr. who performed your procedure. 1. Redness/inflammation, swelling, chills, or fever, or colored drainage at procedure site within 3-7 days after your procedure. 2. Coldness, discoloration, ongoing numbness, severe pain, or swelling. Expect mild tingling of hand and tenderness at the puncture site for up to three days. If this persists beyond three days, or other symptoms develop, notify the Dr. who performed your procedure. BLEEDING: If the procedure site on your wrist begins to bleed, do not panic 1. Place 1 or 2 fingers firmly just slightly above the insertion site to stop the bleeding. You may be able to feel your pulse as you hold pressure. 2. Lift your finger after 5 minutes to see if the bleeding has stopped. 3. Once the bleeding has stopped, gently wipe the wrist area clean with a bandage. * If the bleeding from your wrist does not stop after 10 minutes, or if there is a large amount of bleeding or spurting, call 911 (do not drive yourself to the hospital). SKIN IRRITATION: * You may experience some redness and/or swelling in the area where radiation was administered. If any skin irritation occurs, please contact your family physician. FOLLOW UP VISIT: Keep any scheduled doctor appointments. Addtl Revenue Officer Provider Instructions: You were admitted to [facility] for cough and shortness of breath. Both cardiology and pulmonology specialty services evaluated you while you were in the hospital. An echocardiogram, or ultrasound of your heart showed a new deficit - an inability of the heart to pump blood as efficiency as normal. This is known as a reduced ejection fraction - which is the amount of blood ejected from the heart to the rest of the body with each beat. Sometimes heart attacks are the reason for these pumping deficits occur- you underwent a catheterization of your heart while in the hospital which showed no vessel disease - meaning the cause was not a heart attack, or from a lack of blood being delivered to the heart muscle itself. Instead, the running hypothesis for this deficit was a transient viral illness causing inflammation of the heart muscle, or from underlying thyroid disease. Because of your reduce pumping ability, you were fitted for a life vest before leaving the hospital. If your heart goes into an arrhythmia - the vest will shock the heart with the intent to restore a normal rhythm. You were started on several new medications while in the hospital for your current heart problem. Please continue to take Coreg 3.125mg twice daily. Please take Entresto 24-26mg twice daily. Please take Lasix 80mg twice daily. These were sent to your pharmacy for peanut picker. I have placed an order for you to get your blood drawn in 4 days - this is to check on the electrolytes/kidney function, which can be influenced by some of the above medications. You will need to follow up with PCP in the office next week, Dr. Sobia Lee at [address] [place] [address] in [place]; and also with Cardiology in 2-3 weeks. Additionally, you were started on an inhaler known as Breo Ellipta. You may continue using this at discharge. However, pulmonology recommend you have formal lung testing after being released from the hospital to accurately diagnose asthma. This testing can be arranged at your office visit next week. Finally, your calcium level was low - your vitamin D level was also found to be low. Please take Vitamin D3 supplements, 50,000 IU once weekly for 6 weeks to replenish your stores. Vitamin D helps calcium get absorbed. Additionally, please try to take in 3-4 servings of dairy daily. Pending Studies at Discharge: No Stand-Alone Forms: My [employer], Smoking Cessation Medications and DC Order Prescriptions: New carvedilol 3.125 mg Tablet 3.125 mg PO BID Qty: 60 0RF Entresto 24-26 mg Tablet 1 tab PO BID Qty: 60 11RF furosemide [Lasix] 80 mg tablet 80 mg PO BID 7 Days Qty: 14 0RF cholecalciferol (vitamin D3) 1,250 mcg (50,000 unit) tablet 1,250 mcg PO ONCE 42 Days Qty: 6 0RF Rx Instructions: Take 1 tablet each week until gone fluticasone furoate-vilanterol [Breo Ellipta] 100-25 mcg/dose blister with device 1 inh inhalation DAILY 30 Days Qty: 60 2RF Continued fluticasone propionate 50 mcg/actuation spray,suspension 2 spray intranasal DAILY Qty: 16 3RF Rx Instructions: administer into each nostril Zyrtec 10 mg capsule 10 mg PO QAM PRN (Reason: Allergic Symptoms) promethazine-DM 6.25-15 mg/5 mL syrup 5 ml PO Q8H PRN (Reason: Cough) albuterol sulfate 90 mcg/actuation HFA aerosol inhaler 2 puff INHALATION Q8H PRN (Reason: Shortness Of Breath Or Wheezing) L norgest/e.estradiol-e.estrad [Seasonique] 0.15 mg-30 mcg (84)/10 mcg (7) tablets,dose pack,3 month 1 tab PO QPM Changed levothyroxine 150 mcg tablet 125 mcg PO DAILY 30 Days Qty: 30 1RF Discontinued doxycycline hyclate 100 mg capsule 100 mg PO BID Rx Instructions: STARTED 01/24/22 FOR 14 DAYS. Discharge Orders: Discharge Order (Routine); Ordered 02/01/22 Ordered By: Sobia Lee Admission Data Admit Date/Time: 01/30/22 18:39 Attending Provider: Sobia Lee Admit Provider: Heraclio Hodge Primary Care Provider: Jin Aguilar V. Other Providers: Heraclio Hodge ; Mart Reyna ; Colin Jimenez ; Tim Devries ; Amari Alvarado ; Tigre Quigley ; Camden Rodriguez ; Romario Andrade Jr ; Piyush Helms ; Mercedes Caal ; Vidhya Redd ; Pollo Hernandez ; Sudeep Krishnamurthy ; Ratsa Shah ; Denisa Alanis ; Dulce Ricketts ; Babar Huston ; Dmitri Jarvis ; Lul Irving ; Tigre Lawton V. Coding Level of Care Code D/C DAY MANAGEMENT >30 MINS Diagnoses Cardiomyopathy I42.9 Asthma J45.909 Hypocalcemia E83.51 Hypothyroidism E03.9
== END 2022-02-01 16:12 | disposition home or self-care (01) | DRG 286 ==
LOC: ED 16:23 → SUATTDRO 18:39 → 2S 18:39
PROC: CLB.CCO (2022-01-31 14:00)
DX: N92.0 Excessive and frequent menstruation with regular cycle; Z91.040 Latex allergy status; I42.8 Other cardiomyopathies; E83.51 Hypocalcemia; Z79.890 Hormone replacement therapy; E03.9 Hypothyroidism, unspecified; J91.8 Pleural effusion in other conditions classified elsewhere; J45.901 Unspecified asthma with (acute) exacerbation; Z88.0 Allergy status to penicillin; E66.9 Obesity, unspecified; I50.21 Acute systolic (congestive) heart failure; J30.2 Other seasonal allergic rhinitis; J81.0 Acute pulmonary edema; J12.9 Viral pneumonia, unspecified; E87.3 Alkalosis; I44.7 Left bundle-branch block, unspecified; Z68.31 Body mass index [BMI] 31.0-31.9, adult